=== PATIENT | male | born 1970 | race African-American/Black ===

== ENCOUNTER 2019-04-07 22:57 | Inpatient (IN) | payer MEDICAID ==
--- NOTE | 2019-04-08 00:03 | Emergency Department Report ---
ED Shortness of Breath HPI - General Chief Complaint: Dyspnea/Respdistress Stated Complaint: DETSIN Time Seen by Provider: 04/07/19 23:27 Source: patient, EMS Mode of arrival: Stretcher Limitations: No Limitations - History of Present Illness Initial Comments: Mr. Torres is a 48-year-old male with history of liver cancer presents with 3 months of abdominal swelling and one month of bilateral leg swelling. He also has shortness of breath. He was diagnosed with liver cancer in [place]. He travels between [place] and [place]. He currently is living here with his mother. History of tobacco abuse. No history of alcohol abuse. He has not received any recent medical treatment. Arrived via EMS MD Complaint: shortness of breath -: Gradual, month(s) (3) Severity: moderate Improves With: nothing Worsens With: nothing Known History Of: other (liver cancer) - Related Data Allergies Allergy/AdvReac Type Severity Reaction Status Date / Time No Known Allergies Allergy Unverified 04/07/19 23:31 ED Review of Systems ROS: Stated complaint: DESTIN Other details as noted in HPI Comment: All other systems reviewed and negative Constitutional: denies: fever, malaise Respiratory: shortness of breath. denies: cough Cardiovascular: denies: chest pain ED Past Medical Hx - Past Medical History Previous Medical History?: Yes Hx of Cancer: Yes (liver ca) - Surgical History Past Surgical History?: No - Social History Smoking Status: Current Every Day Smoker Substance Use Type: None Other Social History: Unemployed, currently living with mother ED Physical Exam - General Limitations: No Limitations General appearance: alert, in no apparent distress, other (speaking full sentences, mild work of breathing) - Head Head exam: Present: atraumatic, normocephalic - Eye Eye exam: Present: normal appearance - ENT ENT exam: Present: mucous membranes moist - Neck Neck exam: Present: normal inspection - Respiratory Respiratory exam: Present: normal lung sounds bilaterally. Absent: respiratory distress, wheezes, rales, rhonchi - Cardiovascular Cardiovascular Exam: Present: regular rate, normal rhythm, normal heart sounds. Absent: systolic murmur, diastolic murmur, rubs, gallop - GI/Abdominal GI/Abdominal exam: Present: distended (tense, shiny skin, dull to percussion, ), normal bowel sounds. Absent: tenderness, guarding, rebound - Rectal Rectal exam: Present: deferred - Extremities Exam Extremities exam: Present: other (4+ pitting edema from groin to feet bilaterally) - Back Exam Back exam: Present: normal inspection - Neurological Exam Neurological exam: Present: alert, oriented X3 - Psychiatric Psychiatric exam: Present: normal affect, normal mood - Skin Skin exam: Present: warm, dry, intact, normal color. Absent: rash ED Course Vital Signs 04/07/19 04/07/19 04/07/19 23:20 23:30 23:31 Temperature 98.1 F Pulse Rate 98 H 105 H Respiratory 27 H 24 26 H Rate Blood Pressure 131/85 131/85 Blood Pressure 131/85 [Left] O2 Sat by Pulse 98 98 98 Oximetry 04/08/19 00:00 Temperature Pulse Rate 103 H Respiratory 26 H Rate Blood Pressure 122/85 Blood Pressure [Left] O2 Sat by Pulse 97 Oximetry ED Medical Decision Making - Lab Data Result diagrams: 04/08/19 00:06 04/08/19 00:06 - EKG Data 04/08/19 00:16 EKG obtained 0005 Sinus tachycardia rate 100 beats minute normal axis normal intervals no ST elevation normal T-wave pattern normal EKG with the exception of sinus tachycardia - Radiology Data Radiology results: report reviewed AP portable radiograph no acute process according to radiologist report - Medical Decision Making Mr. Torres has a hx of reported liver cancer without recent medical care who prese nts with abdominal discomfort for 3 months and lower extremity edema for one month. He presents with anasarca, obvious ascites and lower extremity edema. Notable w/u thus far with severe leukocytosis => Possible causes: SBP vs hematologic cancer vs paraneoplastic leukomoid reaction Given broad-spectrum antibiotics in the ED. Admitted to the hospitalist service Critical care attestation.: If time is entered above; I have spent that time in minutes in the direct care of this critically ill patient, excluding procedure time. ED Disposition Clinical Impression: Anasarca, Malignancy, Dyspnea Disposition: OP ADMIT IP TO THIS HOSP Is pt being admited?: Yes Does the pt Need Aspirin: No Condition: Stable
--- NOTE | 2019-04-08 00:24 | XRay Report ---
PROCEDURE: XR CHEST 1V AP TECHNIQUE: Chest radiograph single view. HISTORY: Dyspnea COMPARISONS: None . FINDINGS: Heart: Normal. Mediastinum/Vessels: Normal. Lungs/Pleural space: There is atelectasis in both lower lungs. There is no evidence of effusion or p neumothorax. There is an elevated right hemidiaphragm.. Bony thorax: No acute osseous abnormality. Life support devices: None. IMPRESSION: Atelectasis in both lower lungs. There is an elevated right hemidiaphragm. No effusion o r pneumothorax. This document is electronically signed by Abby Morris DO., Apr 08 2019 12:22:03 AM ET
[2019-04-08 00:30] LABS: Hematocrit 29.6 % (35.5-45.6); Hemoglobin 9.5 gm/dl (11.8-15.2); Mean Corpuscular HGB Conc 32 % (32-34); Mean Corpuscular Volume 98 fl (84-94); Platelet Count 244 K/mm3 (140-440); Red Blood Count 3.03 M/mm3 (3.65-5.03); Red Cell Distribution Width 16.5 % (13.2-15.2)
[2019-04-08 00:50] LABS: Alanine Aminotransferase 57 units/L (7-56); Albumin 3.1 g/dL (3.9-5); BUN/Creatinine Ratio 23; Blood Urea Nitrogen 21 mg/dL (9-20); Calcium 8.9 mg/dL (8.4-10.2); Hemolysis Index 2
--- NOTE | 2019-04-08 02:09 | Cat Scan Report ---
PROCEDURE: CT ANGIO CHEST TECHNIQUE: A CT angiogram was obtained of the chest following the intravenous injection of 100 cc of Omnipaque 350. MIP sagittal, coronal and rotational reconstructions were reviewed. HISTORY: ascites dyspnea COMPARISONS: None FINDINGS: The heart size is normal. There is no evidence of pericardial effusion. There is no evidence of conge stion or pulmonary embolus. The lungs reveal generalized interstitial prominence without focal infilt rate or effusion. In the retrosternal space there is a heterogeneous mass measuring 4.1 x 2.6 x 5.1 c m. Whether this represents enlarged lymph nodes or a neoplasm is uncertain. In the upper abdomen the liver is diffusely enlarged having low attenuation areas and overall heterog eneous enhancement. How much of the findings are related to hepatic steatosis and/or cirrhosis is unc ertain. The spleen is not enlarged. The adrenal glands appear normal. The skeletal structures do not show any acute changes. IMPRESSION: No evidence of pulmonary embolus, aortic dissection, or vascular congestion. Retrosternal mass measuring 4.1 x 2.6 x 5.1 cm. Whether this represents enlarged lymph nodes or neopl asm is uncertain. PET CT imaging is recommended for initial further evaluation. Generalized interstitial prominence in the lungs without focal infiltrate. How much of the findings o n the basis of interstitial edema versus chronic changes is uncertain. Hepatomegaly with heterogeneous attenuation of liver suggesting some combination of hepatic steatosis and/or cirrhosis.. Occult malignancy cannot entirely be ruled out. MRI is recommended for further ev aluation. This document is electronically signed by Josr Juan MD., Apr 08 2019 02:07:39 AM OMAR
[2019-04-08] MEDS: MAXIPIME/NS 2 GM/100 ML 2 GM/100 ML BAG IV SCH ×3 (02:20→17:06)
--- NOTE | 2019-04-08 02:41 | Cat Scan Report ---
PROCEDURE: CT ABDOMEN PELVIS W CON TECHNIQUE: Computerized axial tomography of the abdomen and pelvis was performed after the IV inject ion of iodinated nonionic contrast. HISTORY: ascites COMPARISONS: None . FINDINGS: Liver: The liver is enlarged. There are large areas of hypoattenuation scattered throughout the liver. The radius is fatty infiltra tion primary hepatic tumor are all within the differential.. Spleen: Spleen size is prominent. There are areas of hypoattenuation which may represent multiple dawood ologies including atypical cysts or possibly metastatic change.. Gallbladder and biliary system: Closure identified within the gallbladder lumen. No dilatation of the biliary ductal system. Pancreas: Normal. Adrenals: Normal. Kidneys: Normal. GI tract: The stomach is normal. No obstruction is seen. The colon is normal. The appendix is not vi sualized. . Lymph nodes and mesentery: There are scattered lymph nodes throughout the mesentery.. Vasculature: Normal.. Bladder: Normal. Reproductive organs: Normal. Peritoneum: No free fluid. Musculoskeletal structures: No significant abnormality. Other: None . IMPRESSION: The liver is enlarged with multiple areas of hypoattenuation throughout the liver especi ally the right lobe. Cirrhosis is possible. Primary metastatic change to the liver is also within the differential. The spleen is slightly enlarged, areas of hypoattenuation may represent multiple etiologies including atypical cyst or metastatic change. There is no evidence of intestinal or urinary tract obstruction. . This document is electronically signed by Abby Morris DO., Apr 08 2019 02:39:30 AM ET
[2019-04-08] MEDS ORDERED: ZOFRAN IV PRN (03:35)
[2019-04-08] MEDS ORDERED: IBUPROFEN PO PRN (03:35)
[2019-04-08] MEDS ORDERED: SODIUM CHLORIDE FLUSH SYRINGE 10 ML IV PRN (03:35)
--- NOTE | 2019-04-08 03:55 | History and Physical Report ---
<KAROLYN GASCA - Last Filed: 04/08/19 03:48> History of Present Illness Date of examination: 04/08/19 Date of admission: 04/08/2019 Chief complaint: Shortness of breath and generalized edema History of present illness: Mr. Torres is a 48 y.o. [place] male who is an ongoing smoker recently diagnosed with Liver cancer (Dec 2018) who presents to [facility] ED via EMS with c/o worsening dyspnea, bilateral lowr extremity and abdominal swelling for the past month. Pt relocated to [place] from [place], [place] approximately 3 months ago. Currently he is unemployed and is living with his mother. Pt does not have a PCP and has not received any treatment since being diagnosed with liver cancer at a facility in [place], [place] . Admits to dyspnea at rest, occasional non productive cough. Denies pain, fever, CP, hemoptysis, n/v/, or recent sick expo sure. Past History Past Medical History: cancer (diagnosed with liver cancer 12/2018) Past Surgical History: No surgical history Social history: smoking (ongoing smoker 1ppd ) Family history: no significant family history Medications and Allergies Allergies Allergy/AdvReac Type Severity Reaction Status Date / Time No Known Allergies Allergy Unverified 04/07/19 23:31 Active Meds: Active Medications Docusate Sodium (Colace) 100 mg PO BID LILLIAN Furosemide (Lasix) 40 mg IV 0600,1800 LILLIAN Cefepime HCl (Maxipime/Ns 2 Gm/100 Ml) 2 gm in 100 mls @ 200 mls/hr IV Q8H LILLIAN; Protocol Last Admin: 04/08/19 02:20 Dose: 200 mls/hr Documented by: Vancomycin HCl (Vancomycin/Ns 1 Gm/250 Ml) 1 gm in 250 mls @ 167.007 mls/hr IV ONCE ONE; Protocol Stop: 04/08/19 05:03 Ibuprofen (Motrin) 600 mg PO Q6H PRN PRN Reason: Pain, Mild (1-3) Ondansetron HCl (Zofran) 4 mg IV Q8H PRN PRN Reason: Nausea And Vomiting Sodium Chloride (Sodium Chloride Flush Syringe 10 Ml) 10 ml IV BID LILLIAN Sodium Chloride (Sodium Chloride Flush Syringe 10 Ml) 10 ml IV PRN PRN PRN Reason: LINE FLUSH Review of Systems Constitutional: weight gain, no fever, no chills, no sweats, no poor appetite Ears, nose, mouth and throat: no mouth pain, no dysphagia, no sore throat, no headache Cardiovascular: edema, shortness of breath, dyspnea on exertion, no chest pain, no orthopnea, no high blood pressure Respiratory: cough, shortness of breath, dyspnea on exertion, no cough with sputum, no hemoptysis Gastrointestinal: other (ascites), no abdominal pain, no nausea, no vomiting Genitourinary Male: no hematuria, no discharge, no urinary hesitancy, no incontinence Rectal: no pain, no incontinence, no bleeding Musculoskeletal: no arm numbness/tingling, no shooting leg pain, no leg numbness/tingling, no muscle weakness, no limitation of motion Integumentary: no rash, no pruritis, no redness Neurological: no paralysis, no weakness, no parathesias, no numbness, no ting ling Psychiatric: no anxiety, no suicidal ideation, no depression Endocrine: no polyphagia, no excessive thirst, no polydipsia, no polyuria, no nocturia Hematologic/Lymphatic: no easy bruising, no easy bleeding Allergic/Immunologic: no wheezing Exam - Physical Exam Narrative exam: Physical exam General appearance: Present: No acute distress, alert, and oriented x3, pale looking - EENT Eyes: Present: PERRL, EOM intact ENT: hearing intact, poor dentition - Neck Neck: Present: supple, normal ROM - Respiratory Respiratory effort: Non-labored Respiratory: bi-basilar crackles - Cardiovascular Heart rate: 101 (bpm) Rhythm: regular Heart Sounds: Present: S1 & S2. Absent: rub, click - Extremities Extremities: no ischemia, pulses intact, abnormal (generalized +3 pitting edema) - Peripheral Assessment Peripheral Pulses: within normal limits - Abdominal General gastrointestinal: rounded, firm, , non-tender, normal bowel sounds - Integumentary Integumentary: Present: warm, dry - Musculoskeletal Musculoskeletal: able to move all extremities - Psychiatric Psychiatric: cooperative - Constitutional Vitals: Temp Pulse Resp BP Pulse Ox 98.1 F 101 H 28 H 123/83 97 04/07/19 23:20 04/08/19 00:30 04/08/19 00:30 04/08/19 02:26 04/08/19 02:26 Results - Labs CBC & Chem 7: 04/08/19 00:06 04/08/19 00:06 Labs: Laboratory Last Values WBC 39.1 K/mm3 (4.5-11.0) H 04/08/19 00:06 RBC 3.03 M/mm3 (3.65-5.03) L 04/08/19 00:06 Hgb 9.5 gm/dl (11.8-15.2) L 04/08/19 00:06 Hct 29.6 % (35.5-45.6) L 04/08/19 00:06 MCV 98 fl (84-94) H 04/08/19 00:06 MCH 31 pg (28-32) 04/08/19 00:06 MCHC 32 % (32-34) 04/08/19 00:06 RDW 16.5 % (13.2-15.2) H 04/08/19 00:06 Plt Count 244 K/mm3 (140-440) 04/08/19 00:06 Sodium 138 mmol/L (137-145) 04/08/19 00:06 Potassium 4.0 mmol/L (3.6-5.0) 04/08/19 00:06 Chloride 98.8 mmol/L (98-107) 04/08/19 00:06 Carbon Dioxide 21 mmol/L (22-30) L 04/08/19 00:06 22 mmol/L 04/08/19 00:06 BUN 21 mg/dL (9-20) H 04/08/19 00:06 0.9 mg/dL (0.8-1.5) 04/08/19 00:06 Estimated GFR > 60 ml/min 04/08/19 00:06 23 % 04/08/19 00:06 Glucose 105 mg/dL (75-100) H 04/08/19 00:06 Lactic Acid 4.40 mmol/L (0.7-2.0) H* 04/08/19 02:06 Calcium 8.9 mg/dL (8.4-10.2) 04/08/19 00:06 Magnesium 1.70 mg/dL (1.7-2.3) 04/08/19 00:06 0.60 mg/dL (0.1-1.2) 04/08/19 00:06 AST 98 units/L (5-40) H 04/08/19 00:06 ALT 57 units/L (7-56) H 04/08/19 00:06 940 units/L (35-129) H 04/08/19 00:06 < 0.010 ng/mL (0.00-0.029) 04/08/19 00:06 NT-Pro-B Natriuret Pep 307.1 pg/mL (0-450) 04/08/19 00:06 8.0 g/dL (6.3-8.2) 04/08/19 00:06 3.1 g/dL (3.9-5) L 04/08/19 00:06 0.6 % 04/08/19 00:06 46 units/L (13-60) 04/08/19 00:06 Short CBC 04/08/19 Range/Units 00:06 WBC 39.1 H (4.5-11.0) K/mm3 Hgb 9.5 L (11.8-15.2) gm/dl Hct 29.6 L (35.5-45.6) % Plt Count 244 (140-440) K/mm3 BMP 04/08/19 00:06 Sodium 138 Potassium 4.0 Chloride 98.8 Carbon Dioxide 21 L BUN 21 H Creatinine 0.9 Glucose 105 H Calcium 8.9 Cardiac Enzymes 04/08/19 Range/Units 00:06 Troponin T < 0.010 (0.00-0.029) ng/mL Liver Function 04/08/19 Range/Units 00:06 Total Bilirubin 0.60 (0.1-1.2) mg/dL AST 98 H (5-40) units/L ALT 57 H (7-56) units/L Alkaline Phosphatase 940 H (35-129) units/L Albumin 3.1 L (3.9-5) g/dL - Imaging and Cardiology Chest x-ray: report reviewed ( Atelectasis in both lower lungs. There is an elevated right hemidiaphragm. No effusion), image reviewed CT scan - abdomen: report reviewed, image reviewed (enlarged liver with multiple areas of hypoattenuation throughout. spleen is slightly enlarged, areas of hypoattenuation ) CT scan - chest: report reviewed, image reviewed (No evidence of pulmonary embolus, aortic dissection, or vascular congestion. Retrosternal mass measuring 4.1 x 2.6 x 5.1 cm) Assessment and Plan Assessment and plan: Mr. Torres is a 48 y.o. [place] male who is an ongoing smoker recently diagnosed with Liver cancer (Dec 2018) who presents to [facility] ED via EMS with c/o worsening dyspnea, bilateral lowr extremity and abdominal swelling for the past month. Pt relocated to [place] from [place], [place] approximately 3 months ago. Currently he is unemployed and is living with his mother. Pt does not have a PCP and has not received any treatment since being diagnosed with liver cancer at a facility in [place], [place] . Pt has generalized edema. High WBC at 39.1 likely suggestive of malignancy. Elevation of AST 98 and ALT 57. We will attempt to obtain medical records from hospital in [facility]. Pt will be admitted to Medical floor. Will consult Heme/Onc. Abnormal Chest CTA & CT Abd/Pelvis Leukocytosis- likely secondary to malignancy Fluid Overload Anemia Tobacco dependence/ Abuse Plans: Continue Cefepime 2g Give Vancomycin 1gm x1 dose Blood Cultures pending Diurese with IV Lasix 40mg BID Strict I&O's Monitor hgb; transfuse prn Monitor CBC with diff Heme/Onc consult pending Counseled for cessation Start Nicotine patch DVT PPX on SCD's will hold off on AC for now Advance Directives: No VTE prophylaxis?: Mechanical Plan of care discussed with patient/family: Yes <ABIDA MENA - Last Filed: 04/14/19 00:17> History of Present Illness Date of admission: 04/08/19 03:35 Medications and Allergies Active Meds: Active Medications Docusate Sodium (Colace) 100 mg PO BID LILLIAN Furosemide (Lasix) 40 mg IV 0600,1800 LILLIAN Cefepime HCl (Maxipime/Ns 2 Gm/100 Ml) 2 gm in 100 mls @ 200 mls/hr IV Q8H LILLIAN; Protocol Last Admin: 04/08/19 02:20 Dose: 200 mls/hr Documented by: Ibuprofen (Motrin) 600 mg PO Q6H PRN PRN Reason: Pain, Mild (1-3) Nicotine (Habitrol) 14 mg TD QDAY LILLIAN Ondansetron HCl (Zofran) 4 mg IV Q8H PRN PRN Reason: Nausea And Vomiting Sodium Chloride (Sodium Chloride Flush Syringe 10 Ml) 10 ml IV BID LILLIAN Sodium Chloride (Sodium Chloride Flush Syringe 10 Ml) 10 ml IV PRN PRN PRN Reason: LINE FLUSH Exam - Constitutional Vitals: Temp Pulse Resp BP Pulse Ox 98.7 F 105 H 20 125/79 95 04/08/19 05:30 04/08/19 05:30 04/08/19 05:30 04/08/19 05:30 04/08/19 05:30 Results - Labs CBC & Chem 7: 04/13/19 05:46 04/13/19 05:46 Labs: Laboratory Last Values WBC 39.1 K/mm3 (4.5-11.0) H 04/08/19 00:06 RBC 3.03 M/mm3 (3.65-5.03) L 04/08/19 00:06 Hgb 9.5 gm/dl (11.8-15.2) L 04/08/19 00:06 Hct 29.6 % (35.5-45.6) L 04/08/19 00:06 MCV 98 fl (84-94) H 04/08/19 00:06 MCH 31 pg (28-32) 04/08/19 00:06 MCHC 32 % (32-34) 04/08/19 00:06 RDW 16.5 % (13.2-15.2) H 04/08/19 00:06 Plt Count 244 K/mm3 (140-440) 04/08/19 00:06 Add Manual Diff Complete 04/08/19 00:06 Total Counted 100 04/08/19 00:06 Seg Neuts % (Manual) 71.0 % (40.0-70.0) H 04/08/19 00:06 11.0 % 04/08/19 00:06 9.0 % (13.4-35.0) L 04/08/19 00:06 Reactive Lymphs % (Man) 0 % 04/08/19 00:06 9.0 % (0.0-7.3) H 04/08/19 00:06 0 % (0.0-4.3) 04/08/19 00:06 0 % (0.0-1.8) 04/08/19 00:06 0 % 04/08/19 00:06 0 % 04/08/19 00:06 0 % 04/08/19 00:06 0 % 04/08/19 00:06 Nucleated RBC % Not Reportable 04/08/19 00:06 Seg Neutrophils # Man 27.8 K/mm3 (1.8-7.7) H 04/08/19 00:06 Band Neutrophils # 4.3 K/mm3 04/08/19 00:06 3.5 K/mm3 (1.2-5.4) 04/08/19 00:06 Abs React Lymphs (Man) 0.0 K/mm3 04/08/19 00:06 3.5 K/mm3 (0.0-0.8) H 04/08/19 00:06 0.0 K/mm3 (0.0-0.4) 04/08/19 00:06 0.0 K/mm3 (0.0-0.1) 04/08/19 00:06 0.0 K/mm3 04/08/19 00:06 0.0 K/mm3 04/08/19 00:06 0.0 K/mm3 04/08/19 00:06 Blast Cells # 0.0 K/mm3 04/08/19 00:06 WBC Morphology Not Reportable 04/08/19 00:06 Hypersegmented Neuts Not Reportable 04/08/19 00:06 Hyposegmented Neuts Not Reportable 04/08/19 00:06 Hypogranular Neuts Not Reportable 04/08/19 00:06 Not Reportable 04/08/19 00:06 Not Reportable 04/08/19 00:06 Not Reportable 04/08/19 00:06 Not Reportable 04/08/19 00:06 Not Reportable 04/08/19 00:06 Not Reportable 04/08/19 00:06 Appears normal 04/08/19 00:06 Not Reportable 04/08/19 00:06 Plt Clumps, EDTA Not Reportable 04/08/19 00:06 Not Reportable 04/08/19 00:06 Not Reportable 04/08/19 00:06 Not Reportable 04/08/19 00:06 Plt Morphology Comment Not Reportable 04/08/19 00:06 RBC Morphology Normal 04/08/19 00:06 Dimorphic RBCs Not Reportable 04/08/19 00:06 Not Reportable 04/08/19 00:06 Not Reportable 04/08/19 00:06 Not Reportable 04/08/19 00:06 Not Reportable 04/08/19 00:06 Not Reportable 04/08/19 00:06 Not Reportable 04/08/19 00:06 Not Reportable 04/08/19 00:06 Not Reportable 04/08/19 00:06 Not Reportable 04/08/19 00:06 Not Reportable 04/08/19 00:06 Not Reportable 04/08/19 00:06 Not Reportable 04/08/19 00:06 Not Reportable 04/08/19 00:06 Not Reportable 04/08/19 00:06 Not Reportable 04/08/19 00:06 Not Reportable 04/08/19 00:06 Not Reportable 04/08/19 00:06 Not Reportable 04/08/19 00:06 Not Reportable 04/08/19 00:06 Acanthocytes (Spur) Not Reportable 04/08/19 00:06 Rouleaux Not Reportable 04/08/19 00:06 Not Reportable 04/08/19 00:06 Not Reportable 04/08/19 00:06 Not Reportable 04/08/19 00:06 Not Reportable 04/08/19 00:06 Hem Pathologist Commnt No 04/08/19 00:06 PT 13.4 Sec. (12.2-14.9) 04/08/19 03:51 INR 0.96 (0.87-1.13) 04/08/19 03:51 Sodium 138 mmol/L (137-145) 04/08/19 00:06 Potassium 4.0 mmol/L (3.6-5.0) 04/08/19 00:06 Chloride 98.8 mmol/L (98-107) 04/08/19 00:06 Carbon Dioxide 21 mmol/L (22-30) L 04/08/19 00:06 22 mmol/L 04/08/19 00:06 BUN 21 mg/dL (9-20) H 04/08/19 00:06 0.9 mg/dL (0.8-1.5) 04/08/19 00:06 Estimated GFR > 60 ml/min 04/08/19 00:06 23 % 04/08/19 00:06 Glucose 105 mg/dL (75-100) H 04/08/19 00:06 Lactic Acid 3.60 mmol/L (0.7-2.0) H* 04/08/19 05:58 Calcium 8.9 mg/dL (8.4-10.2) 04/08/19 00:06 Magnesium 1.70 mg/dL (1.7-2.3) 04/08/19 00:06 0.60 mg/dL (0.1-1.2) 04/08/19 00:06 AST 98 units/L (5-40) H 04/08/19 00:06 ALT 57 units/L (7-56) H 04/08/19 00:06 940 units/L (35-129) H 04/08/19 00:06 < 0.010 ng/mL (0.00-0.029) 04/08/19 00:06 NT-Pro-B Natriuret Pep 307.1 pg/mL (0-450) 04/08/19 00:06 8.0 g/dL (6.3-8.2) 04/08/19 00:06 3.1 g/dL (3.9-5) L 04/08/19 00:06 0.6 % 04/08/19 00:06 46 units/L (13-60) 04/08/19 00:06 Assessment and Plan Assessment and plan: 48-year-old man was recently diagnosed with liver cancer and presents at emergency room with complaints of upper abdominal pain. His physical exam is significant for anasarca, abdominal tenderness and leukocytosis without a source. Agree with cefepime, given a dose of vancomycin. Obtain medical records from [place]. Agree with the plan as discussed above except change ibuprofen to morphine, a DVT prophylaxis. I saw and examined the patient, case discussed with nurse practitioner
[2019-04-08] MEDS ORDERED: FLAGYL 500 MG/100 ML 500 MG/100 ML BAG IV SCH (04:00)
[2019-04-08] MEDS ORDERED: VANCOMYCIN/NS 1 GM/250 ML 1 GM/250 ML BAG IV ONE (04:00)
[2019-04-08 04:25] LABS: INR 0.96 (0.87-1.13)
[2019-04-08 06:11] LABS: Band Neutrophils # (Manual) 4.3 K/mm3; Basophils % (Manual) 0 % (0.0-1.8); Eosinophils % (Manual) 0 % (0.0-4.3); RBC Morphology Normal; Total Cells Counted 100
[2019-04-08] MEDS: LASIX IV SCH ×2 (07:36→17:06)
[2019-04-08] MEDS: LOVENOX SUB-Q SCH (09:17)
[2019-04-08] MEDS: HABITROL TD SCH (09:17)
[2019-04-08] MEDS: COLACE PO SCH ×2 (09:17→22:20)
[2019-04-08] MEDS: SODIUM CHLORIDE FLUSH SYRINGE 10 ML IV SCH ×2 (09:18→22:20)
[2019-04-08] MEDS ORDERED: AFLURIA QUAD 2018-2019 SYRINGE IM ONE (12:00)
--- NOTE | 2019-04-08 15:39 | Event Note ---
Date: 04/08/19 patient seen and examined admitted with h/o liver cancer, onc consulted, will follow recommendation
--- NOTE | 2019-04-08 21:53 | Consultation ---
RADIATION ONCOLOGY CONSULTATION NOTE REFERRING DOCTOR: Sadiq Ho MD CHIEF COMPLAINT: " PROFILE: This is a 48-year-old Irish gentleman with a reported history of metastatic liver cancer referred for palliative radiotherapy. CONCLUSION: 1. He has a history of metastatic liver cancer diagnosed in [place], [place]. No reports available at the time of this dictation. 2. History of abdominal swelling, right upper quadrant pain, dyspnea. RECOMMENDATIONS: We will attempt to obtain all medical records including pathology from [place], [place]. We agree he should be a candidate for palliative radiotherapy to the retrosternal mass and possibly liver to reduce pain. We will plan to deliver dose of 30 Gy in 10 fractions. ASSESSMENT: This is a very pleasant 48-year-old Irish gentleman with a history of tobacco abuse, reportedly was diagnosed as having liver cancer in 12/2018. He was diagnosed in [place], [place]. He presented to [facility] Emergency Department with chest pain, worsening dyspnea, bilateral lower extremity edema, and swelling. He has relocated to [place]. A CT scan of the abdomen reveals enlarged liver with multiple areas of hypoattenuation throughout consistent with metastatic disease. The spleen is slightly enlarged. CT scan of the chest reveals no evidence of pulmonary embolus, aortic dissection or vascular congestion. There is a retrosternal mass measuring 5.1 x 4.1 x 2.6 cm. His white blood count was 39,000 suggestive of malignancy. Elevation of AST to 98 and ALT to 57. He now is referred for consideration of palliative radiotherapy. Clinically, the patient states he has sternal pain, abdominal pain. His dyspnea has improved. Denies hemoptysis. PAST MEDICAL HISTORY: History of probable metastatic liver cancer, pathology not available. 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 REVIEW OF SYSTEMS: CONSTITUTIONAL: He has fatigue, poor appetite, weight loss. HEENT: Denies any headache, visual changes, hoarseness. RESPIRATORY: He has dyspnea. Denies hemoptysis. Intermittent chest pain. CARDIOVASCULAR: Denies any palpitations, angina. GASTROINTESTINAL: He has right upper quadrant pain, history of liver cancer. Denies any nausea, vomiting, constipation, diarrhea, or rectal bleeding. GENITOURINARY: Denies any dysuria, hematuria. MEDICATIONS: Furosemide, Maxipime, Motrin, nicotine. ALLERGIES: None known. PHYSICAL EXAMINATION: GENERAL: He is a chronically ill-appearing gentleman, in no acute distress. VITAL SIGNS: Blood pressure 125/79, pulse is 100, respiration 18. He is afebrile, pulse ox 95%, ECOG equals 1. Pain equals 4/10 related to right upper quadrant pain. HEENT: Normocephalic, atraumatic. Eyes were clear. LUNGS: Clear to auscultation. No spinal or CVA tenderness. CARDIOVASCULAR: Faint heart tones, regular rate and rhythm. ABDOMEN: Protuberant. His liver is enlarged 4 cm below the right costophrenic angle. He is tender to palpation over the liver. No other masses appreciated. EXTREMITIES: Bilateral lower extremity edema. Upper extremities are unremarkable. No clubbing or cyanosis. NEUROLOGIC: His motor, sensory, and cerebellar exam are grossly intact. Cranial nerves 2-12 are grossly intact. ASSESSMENT AND PLAN: This is an unfortunate 48-year-old Irish gentleman who has a history reported of liver cancer with probable metastasis to the retro-sternum. He has bulky lesion of the retrosternum region on his CT scan causing pain. We will attempt to obtain all records from [place], [place]. We agree he should be an excellent candidate for palliative radiotherapy to the retrosternal mass. We will plan to deliver dose of 30 Gy in 10 fractions. Risk of radiation including, sore throat, cough, fever, nausea, vomiting, was discussed with the patient. We will begin this therapy as soon as possible. JOB# [id number] VENKATA/OLGA ROSA
--- NOTE | 2019-04-08 23:03 | Event Note ---
Date: 04/08/19 [id number]
--- NOTE | 2019-04-09 02:11 | Consultation ---
REFERRING PHYSICIAN: Dr. Mcrae REASON FOR CONSULTATION: History of hepatocellular cancer. HISTORY OF PRESENT ILLNESS: I saw the patient, a 48 years old Micronesian male. The patient states that in December, he was diagnosed with liver cancer. The patient says he relocated to [place] from [place], [place] a few months ago. He lives with his mother. He states he has not been treated for the liver cancer. The details of the pathology are not available. He came to the hospital because of shortness of breath, cough. No fever, no hemoptysis. During this admission, radiology showed hepatomegaly with multiple lesions and also retrosternal mass, so I have been asked to evaluate the patient. At this time, no headache, no visual disturbances, no ear discharge. He has shortness of breath. No abdominal pain, no vomiting, no diarrhea, no dysuria. PAST MEDICAL HISTORY: As above. PAST SURGICAL HISTORY: None. SOCIAL HISTORY: History of smoking present. FAMILY HISTORY: Noncontributory. ALLERGIES: None. MEDICATIONS: Included Colace, Lasix. PRESENT MEDICATIONS: Includes vancomycin, cefepime, ibuprofen. PHYSICAL EXAMINATION: VITAL SIGNS: Temperature 99, pulse 105, respirations 19, BP 133/88. HEENT: Pallor present. No icterus. NECK: No neck lymph nodes. HEART: S1, S2. LUNGS: Clear to auscultation anteriorly. ABDOMEN: Hepatomegaly present. EXTREMITIES: No calf tenderness, but he has leg edema. LABORATORY DATA: White cell ____, hemoglobin is 9.5, MCV 98, platelet 244. Potassium is 4, creatinine 0.9, calcium 8.9. AST and ALT is slightly abnormal. Alkaline phosphatase is 940. RADIOLOGY: CT chest and abdomen and pelvis were done. Radiology shows a retrosternal heterogeneous mass 4.[address] of the pelvis shows multiple liver lesions. Spleen is prominent. Cirrhosis is a possibility. ASSESSMENT: 2. History of cancer in the liver. It is not clear if it is primary versus metastatic. We will see if we can get the information from [place]. 3. History of shortness of breath. There is retrosternal mass ____. We will look into palliative radiation for this mass. 4. Abnormal liver function tests. 5. History of shortness of breath. 6. Leukocytosis, likely reactive. 7. We will do tumor markers. 8. Mild anemia. PLAN: I will follow the patient during inpatient stay and then in the clinic setting. At this time, the pathology from [place] will help us. We will try to get more information from there. JOB# [id number] ILIA/NTS
[2019-04-09] MEDS: MAXIPIME/NS 2 GM/100 ML 2 GM/100 ML BAG IV SCH ×3 (02:17→18:44)
[2019-04-09] MEDS: LASIX IV SCH ×2 (05:57→18:44)
[2019-04-09 06:55] LABS: Hematocrit 32.3 % (35.5-45.6); Hemoglobin 10.5 gm/dl (11.8-15.2); Mean Corpuscular HGB Conc 33 % (32-34); Mean Corpuscular Volume 97 fl (84-94); Platelet Count 255 K/mm3 (140-440); Red Blood Count 3.33 M/mm3 (3.65-5.03)
[2019-04-09 07:19] LABS: BUN/Creatinine Ratio 27; Blood Urea Nitrogen 24 mg/dL (9-20); Calcium 9.2 mg/dL (8.4-10.2); Hemolysis Index 0
[2019-04-09] MEDS: HABITROL TD SCH (09:40)
[2019-04-09] MEDS: MORPHINE IV PRN (09:41)
[2019-04-09] MEDS: LOVENOX SUB-Q SCH (09:41)
[2019-04-09] MEDS: COLACE PO SCH ×2 (09:44→21:58)
[2019-04-09] MEDS: SODIUM CHLORIDE FLUSH SYRINGE 10 ML IV SCH ×2 (09:44→21:59)
--- NOTE | 2019-04-09 09:58 | Progress Note ---
Assessment and Plan Assessment and plan: --History of liver cancer [December 2018] Oncology following, records from the previous hospital --Leukocytosis; secondary to malignancy Supportive care and hematology oncology following, --Transaminitis; secondary to liver cancer --Generalized edema/secondary to liver failure/diuretics --Moderate malnutrition/hypoalbuminemia albumin 3.1 Due to underlying disease process, nutritional supplements and supportive care --Possible SIRS without organ failure --Lactic acidosis; secondary to underlying disease process Trending down, closely monitor, empiric antibiotics --DVT prophylaxis; Lovenox Monitor closely and adjust management as needed Follow-up hematology oncology recommendations Plan of care is reviewed with the patient and his mother at the bedside Discussed with his nurse History Interval history: Patient seen and examined medical records reviewed Patient complains of generalized weakness Lower extremity swelling Alert awake oriented vital signs reviewed Hospitalist Physical - Constitutional Vitals: Temp Pulse Resp BP Pulse Ox 98.8 F 118 H 20 137/93 96 04/09/19 06:28 04/09/19 06:28 04/09/19 09:41 04/09/19 06:28 04/09/19 06:28 General appearance: Present: no acute distress, well-nourished - EENT Eyes: Present: PERRL, EOM intact - Neck Neck: Present: supple, normal ROM - Respiratory Respiratory effort: normal Respiratory: bilateral: diminished, negative: rales, rhonchi, wheezing - Cardiovascular Rhythm: regular Heart Sounds: Present: S1 & S2 - Extremities Extremities: no ischemia Extremity abnormal: edema - Abdominal General gastrointestinal: soft, non-tender, non-distended, normal bowel sounds - Integumentary Integumentary: Present: clear, warm - Psychiatric Psychiatric: appropriate mood/affect, cooperative - Neurologic Neurologic: CNII-XII intact, moves all extremities Results - Labs CBC & Chem 7: 04/12/19 05:48 04/12/19 05:48 Labs: Laboratory Last Values WBC 34.9 K/mm3 (4.5-11.0) H 04/09/19 06:32 RBC 3.33 M/mm3 (3.65-5.03) L 04/09/19 06:32 Hgb 10.5 gm/dl (11.8-15.2) L 04/09/19 06:32 Hct 32.3 % (35.5-45.6) L 04/09/19 06:32 MCV 97 fl (84-94) H 04/09/19 06:32 MCH 32 pg (28-32) 04/09/19 06:32 MCHC 33 % (32-34) 04/09/19 06:32 RDW 16.0 % (13.2-15.2) H 04/09/19 06:32 Plt Count 255 K/mm3 (140-440) 04/09/19 06:32 Add Manual Diff Complete 04/08/19 00:06 Total Counted 100 04/08/19 00:06 Seg Neuts % (Manual) 71.0 % (40.0-70.0) H 04/08/19 00:06 11.0 % 04/08/19 00:06 9.0 % (13.4-35.0) L 04/08/19 00:06 Reactive Lymphs % (Man) 0 % 04/08/19 00:06 9.0 % (0.0-7.3) H 04/08/19 00:06 0 % (0.0-4.3) 04/08/19 00:06 0 % (0.0-1.8) 04/08/19 00:06 0 % 04/08/19 00:06 0 % 04/08/19 00:06 0 % 04/08/19 00:06 0 % 04/08/19 00:06 Nucleated RBC % Not Reportable 04/08/19 00:06 Seg Neutrophils # Man 27.8 K/mm3 (1.8-7.7) H 04/08/19 00:06 Band Neutrophils # 4.3 K/mm3 04/08/19 00:06 3.5 K/mm3 (1.2-5.4) 04/08/19 00:06 Abs React Lymphs (Man) 0.0 K/mm3 04/08/19 00:06 3.5 K/mm3 (0.0-0.8) H 04/08/19 00:06 0.0 K/mm3 (0.0-0.4) 04/08/19 00:06 0.0 K/mm3 (0.0-0.1) 04/08/19 00:06 0.0 K/mm3 04/08/19 00:06 0.0 K/mm3 04/08/19 00:06 0.0 K/mm3 04/08/19 00:06 Blast Cells # 0.0 K/mm3 04/08/19 00:06 WBC Morphology Not Reportable 04/08/19 00:06 Hypersegmented Neuts Not Reportable 04/08/19 00:06 Hyposegmented Neuts Not Reportable 04/08/19 00:06 Hypogranular Neuts Not Reportable 04/08/19 00:06 Not Reportable 04/08/19 00:06 Not Reportable 04/08/19 00:06 Not Reportable 04/08/19 00:06 Not Reportable 04/08/19 00:06 Not Reportable 04/08/19 00:06 Not Reportable 04/08/19 00:06 Appears normal 04/08/19 00:06 Not Reportable 04/08/19 00:06 Plt Clumps, EDTA Not Reportable 04/08/19 00:06 Not Reportable 04/08/19 00:06 Not Reportable 04/08/19 00:06 Not Reportable 04/08/19 00:06 Plt Morphology Comment Not Reportable 04/08/19 00:06 RBC Morphology Normal 04/08/19 00:06 Dimorphic RBCs Not Reportable 04/08/19 00:06 Not Reportable 04/08/19 00:06 Not Reportable 04/08/19 00:06 Not Reportable 04/08/19 00:06 Not Reportable 04/08/19 00:06 Not Reportable 04/08/19 00:06 Not Reportable 04/08/19 00:06 Not Reportable 04/08/19 00:06 Not Reportable 04/08/19 00:06 Not Reportable 04/08/19 00:06 Not Reportable 04/08/19 00:06 Not Reportable 04/08/19 00:06 Not Reportable 04/08/19 00:06 Not Reportable 04/08/19 00:06 Not Reportable 04/08/19 00:06 Not Reportable 04/08/19 00:06 Not Reportable 04/08/19 00:06 Not Reportable 04/08/19 00:06 Not Reportable 04/08/19 00:06 Not Reportable 04/08/19 00:06 Acanthocytes (Spur) Not Reportable 04/08/19 00:06 Rouleaux Not Reportable 04/08/19 00:06 Not Reportable 04/08/19 00:06 Not Reportable 04/08/19 00:06 Not Reportable 04/08/19 00:06 Not Reportable 04/08/19 00:06 Hem Pathologist Commnt No 04/08/19 00:06 PT 13.4 Sec. (12.2-14.9) 04/08/19 03:51 INR 0.96 (0.87-1.13) 04/08/19 03:51 Sodium 136 mmol/L (137-145) L 04/09/19 06:32 Potassium 4.3 mmol/L (3.6-5.0) 04/09/19 06:32 Chloride 97.9 mmol/L (98-107) L 04/09/19 06:32 Carbon Dioxide 22 mmol/L (22-30) 04/09/19 06:32 20 mmol/L 04/09/19 06:32 BUN 24 mg/dL (9-20) H 04/09/19 06:32 0.9 mg/dL (0.8-1.5) 04/09/19 06:32 Estimated GFR > 60 ml/min 04/09/19 06:32 27 % 04/09/19 06:32 Glucose 83 mg/dL (75-100) 04/09/19 06:32 Lactic Acid 3.20 mmol/L (0.7-2.0) H* 04/08/19 08:20 Calcium 9.2 mg/dL (8.4-10.2) 04/09/19 06:32 Magnesium 1.70 mg/dL (1.7-2.3) 04/08/19 00:06 0.60 mg/dL (0.1-1.2) 04/08/19 00:06 AST 98 units/L (5-40) H 04/08/19 00:06 ALT 57 units/L (7-56) H 04/08/19 00:06 940 units/L (35-129) H 04/08/19 00:06 < 0.010 ng/mL (0.00-0.029) 04/08/19 00:06 NT-Pro-B Natriuret Pep 307.1 pg/mL (0-450) 04/08/19 00:06 8.0 g/dL (6.3-8.2) 04/08/19 00:06 3.1 g/dL (3.9-5) L 04/08/19 00:06 0.6 % 04/08/19 00:06 46 units/L (13-60) 04/08/19 00:06 Active Medications - Current Medications Current Medications: Generic Name Dose Route Start Last Admin Trade Name Freq PRN Reason Stop Dose Admin Docusate Sodium 100 mg 04/08/19 10:00 04/09/19 09:44 Colace PO 100 mg BID LILLIAN Administration Enoxaparin Sodium 40 mg 04/08/19 10:00 04/09/19 09:41 Lovenox SUB-Q 40 mg QDAY LILLIAN Administration Furosemide 40 mg 04/08/19 06:00 04/09/19 05:57 Lasix IV 40 mg 0600,1800 LILLIAN Administration Cefepime HCl 2 gm in 100 mls @ 200 mls/hr 04/08/19 02:00 04/09/19 09:39 Maxipime/Ns 2 Gm/100 Ml IV 200 mls/hr Q8H LILLIAN Administration Protocol Morphine Sulfate 2 mg 04/08/19 06:53 04/09/19 09:41 Morphine IV 2 mg Q4H PRN Administration Pain, Moderate (4-6) Nicotine 14 mg 04/08/19 10:00 04/09/19 09:40 Habitrol TD 14 mg QDAY LILLIAN Administration Ondansetron HCl 4 mg 04/08/19 03:35 Zofran IV Q8H PRN Nausea And Vomiting Sodium Chloride 10 ml 04/08/19 10:00 04/09/19 09:44 Sodium Chloride Flush Syringe 10 Ml IV 10 ml BID LILLIAN Administration Sodium Chloride 10 ml 04/08/19 03:35 Sodium Chloride Flush Syringe 10 Ml IV PRN PRN LINE FLUSH
--- NOTE | 2019-04-09 10:44 | Hem/Onc Progress Note ---
Assessment and Plan 2. History of cancer in the liver. It is not clear if it is primary versus metastatic. We will see if we can get the information from [place]. 3. History of shortness of breath. There is retrosternal mass. We will look into palliative radiation for this mass. 4. Abnormal liver function tests. 5. History of shortness of breath. 6. Leukocytosis, likely reactive. 7. We will do tumor markers. 8. Mild anemia. PLAN: I will follow the patient during inpatient stay and then in the clinic setting. At this time, the pathology from [place] will help us. We will try to get more information from there. 04/09 - pt says he was bx at [facility] at [place]. pt says he was told - he will lvier may be 6 months - Patient Problems (1) Liver cancer Current Visit: Yes Status: Acute Qualifiers: Liver malignancy type: unspecified liver malignancy Qualified Code(s): C22.9 - Malignant neoplasm of liver, not specified as primary or secondary Subjective Date of service: 04/09/19 Principal diagnosis: liver lesions - chest mass Interval history: still has leg swelling Objective - Constitutional Vitals: Last Vital Signs Temp 98.8 F 04/09/19 06:28 Pulse 118 H 04/09/19 06:28 Resp 20 04/09/19 09:41 BP 137/93 04/09/19 06:28 Pulse Ox 96 04/09/19 06:28 Pain Intensity (0-10): denies any pain General appearance: no acute distress Performance status: 3-limited selfcare - EENT Eyes: EOM intact ENT: clear oral mucosa Lymph node exam: negative cervical - Neck Neck: normal ROM - Respiratory Respiratory effort: Positive: normal Respiratory: bilateral: CTA - Cardiovascular Heart Sounds: Present: S1 & S2 Extremities: normal temperature Extremity abnormal: edema - Gastrointestinal General gastrointestinal: Present: soft, non-tender Rectal Exam: deferred - Genitourinary Male genitourinary: Present: deferred - Integumentary Integumentary: warm - Musculoskeletal Musculoskeletal: strength equal bilaterally - Neurologic Neurologic: moves all extremities - Labs Lab Results: Laboratory Results - last 24 hr 04/09/19 04/09/19 06:32 06:32 WBC 34.9 H RBC 3.33 L Hgb 10.5 L Hct 32.3 L MCV 97 H MCH 32 MCHC 33 RDW 16.0 H Plt Count 255 Sodium 136 L Potassium 4.3 Chloride 97.9 L Carbon Dioxide 22 Anion Gap 20 BUN 24 H Creatinine 0.9 Estimated GFR > 60 BUN/Creatinine Ratio 27 Glucose 83 Calcium 9.2 Medications & Allergies - Medications Allergies/Adverse Reactions: Allergies No Known Allergies Allergy (Unverified 04/07/19 23:31) Active Medications: Generic Name Dose Route Start Last Admin Trade Name Freq PRN Reason Stop Dose Admin Docusate Sodium 100 mg 04/08/19 10:00 04/09/19 09:44 Colace PO 100 mg BID LILLIAN Administration Enoxaparin Sodium 40 mg 04/08/19 10:00 04/09/19 09:41 Lovenox SUB-Q 40 mg QDAY LILLIAN Administration Furosemide 40 mg 04/08/19 06:00 04/09/19 05:57 Lasix IV 40 mg 0600,1800 LILLIAN Administration Cefepime HCl 2 gm in 100 mls @ 200 mls/hr 04/08/19 02:00 04/09/19 09:39 Maxipime/Ns 2 Gm/100 Ml IV 200 mls/hr Q8H LILLIAN Administration Protocol Morphine Sulfate 2 mg 04/08/19 06:53 04/09/19 09:41 Morphine IV 2 mg Q4H PRN Administration Pain, Moderate (4-6) Nicotine 14 mg 04/08/19 10:00 04/09/19 09:40 Habitrol TD 14 mg QDAY LILLIAN Administration Ondansetron HCl 4 mg 04/08/19 03:35 Zofran IV Q8H PRN Nausea And Vomiting Sodium Chloride 10 ml 04/08/19 10:00 04/09/19 09:44 Sodium Chloride Flush Syringe 10 Ml IV 10 ml BID LILLIAN Administration Sodium Chloride 10 ml 04/08/19 03:35 Sodium Chloride Flush Syringe 10 Ml IV PRN PRN LINE FLUSH
[2019-04-09 14:40] LABS: Total Cells Counted 100
[2019-04-09 14:41] LABS: Band Neutrophils # (Manual) 0.3 K/mm3; Basophils % (Manual) 0 % (0.0-1.8); Eosinophils % (Manual) 0 % (0.0-4.3); Platelet Estimate Consistent w Auto; RBC Morphology Normal
[2019-04-10] MEDS: MAXIPIME/NS 2 GM/100 ML 2 GM/100 ML BAG IV SCH ×3 (02:32→18:21)
[2019-04-10] MEDS: LASIX IV SCH ×2 (05:28→18:20)
[2019-04-10 07:42] LABS: BUN/Creatinine Ratio 26; Blood Urea Nitrogen 23 mg/dL (9-20); Calcium 8.7 mg/dL (8.4-10.2); Hemolysis Index 0
[2019-04-10 08:12] LABS: Hematocrit 29.7 % (35.5-45.6); Hemoglobin 9.9 gm/dl (11.8-15.2); Mean Corpuscular HGB Conc 33 % (32-34); Mean Corpuscular Volume 97 fl (84-94); Platelet Count 232 K/mm3 (140-440); Red Blood Count 3.08 M/mm3 (3.65-5.03); Red Cell Distribution Width 15.8 % (13.2-15.2)
--- NOTE | 2019-04-10 11:19 | Progress Note ---
Assessment and Plan Assessment and plan: --Cancer liver , recently diagnosed [December 2018] Oncology following, possible palliative radiation --Leukocytosis; secondary to malignancy Supportive care and hematology oncology following, --Transaminitis; secondary to liver cancer --Generalized edema/secondary to liver failure/diuretics --Moderate malnutrition/hypoalbuminemia albumin 3.1 Due to underlying disease process, nutritional supplements and supportive care --Possible SIRS without organ failure --Lactic acidosis; secondary to underlying disease process Trending down, closely monitor, empiric antibiotics --DVT prophylaxis; Lovenox Monitor closely and adjust management as needed Follow-up hematology oncology recommendations Plan of care is reviewed with the patient and his mother at the bedside Discussed with his nurse History Interval history: Patient seen and examined medical records reviewed Patient feels slightly better some abdominal pain Hematology oncology/radiation oncology following the patient Vital signs noted Hospitalist Physical - Constitutional Vitals: Temp Pulse Resp BP Pulse Ox 98.7 F 113 H 20 139/88 96 04/10/19 06:06 04/10/19 06:06 04/10/19 06:06 04/10/19 06:06 04/10/19 06:06 General appearance: Present: no acute distress, well-nourished - EENT Eyes: Present: PERRL, EOM intact - Neck Neck: Present: supple, normal ROM - Respiratory Respiratory effort: normal Respiratory: bilateral: diminished, negative: rales, rhonchi, wheezing - Cardiovascular Rhythm: regular Heart Sounds: Present: S1 & S2 - Extremities Extremities: no ischemia, No edema - Abdominal General gastrointestinal: soft, non-tender, distended, normal bowel sounds, mass - Integumentary Integumentary: Present: clear, warm - Psychiatric Psychiatric: appropriate mood/affect, cooperative - Neurologic Neurologic: CNII-XII intact, moves all extremities Results - Labs CBC & Chem 7: 04/12/19 05:48 04/12/19 05:48 Labs: Laboratory Last Values WBC 36.5 K/mm3 (4.5-11.0) H 04/10/19 06:27 RBC 3.08 M/mm3 (3.65-5.03) L 04/10/19 06:27 Hgb 9.9 gm/dl (11.8-15.2) L 04/10/19 06:27 Hct 29.7 % (35.5-45.6) L 04/10/19 06:27 MCV 97 fl (84-94) H 04/10/19 06:27 MCH 32 pg (28-32) 04/10/19 06:27 MCHC 33 % (32-34) 04/10/19 06:27 RDW 15.8 % (13.2-15.2) H 04/10/19 06:27 Plt Count 232 K/mm3 (140-440) 04/10/19 06:27 Lymph % (Auto) Shoe Parts Molder 04/10/19 06:27 [place] % (Auto) [employer]oe [employer] Molder 04/10/19 06:27 Eos % (Auto) [employer]oe [employer] Molder 04/10/19 06:27 Baso % (Auto) [employer]oe [employer] Molder 04/10/19 06:27 Lymph # [employer] Molder 04/10/19 06:27 [place] # [employer] Molder 04/10/19 06:27 Eos # [employer] Molder 04/10/19 06:27 Baso # [employer] Molder 04/10/19 06:27 Add Manual Diff Complete 04/09/19 06:32 Total Counted 100 04/09/19 06:32 Seg Neutrophils % [employer] Molder 04/10/19 06:27 Seg Neuts % (Manual) 92.0 % (40.0-70.0) H 04/09/19 06:32 1.0 % 04/09/19 06:32 5.0 % (13.4-35.0) L 04/09/19 06:32 Reactive Lymphs % (Man) 0 % 04/09/19 06:32 2.0 % (0.0-7.3) 04/09/19 06:32 0 % (0.0-4.3) 04/09/19 06:32 0 % (0.0-1.8) 04/09/19 06:32 0 % 04/09/19 06:32 0 % 04/09/19 06:32 0 % 04/09/19 06:32 0 % 04/09/19 06:32 Nucleated RBC % Not Reportable 04/09/19 06:32 Seg Neutrophils # [employer]oe [employer] Molder 04/10/19 06:27 Seg Neutrophils # Man 32.1 K/mm3 (1.8-7.7) H 04/09/19 06:32 Band Neutrophils # 0.3 K/mm3 04/09/19 06:32 1.7 K/mm3 (1.2-5.4) 04/09/19 06:32 Abs React Lymphs (Man) 0.0 K/mm3 04/09/19 06:32 0.7 K/mm3 (0.0-0.8) 04/09/19 06:32 0.0 K/mm3 (0.0-0.4) 04/09/19 06:32 0.0 K/mm3 (0.0-0.1) 04/09/19 06:32 0.0 K/mm3 04/09/19 06:32 0.0 K/mm3 04/09/19 06:32 0.0 K/mm3 04/09/19 06:32 Blast Cells # 0.0 K/mm3 04/09/19 06:32 WBC Morphology Not Reportable 04/09/19 06:32 Hypersegmented Neuts Not Reportable 04/09/19 06:32 Hyposegmented Neuts Not Reportable 04/09/19 06:32 Hypogranular Neuts Not Reportable 04/09/19 06:32 Not Reportable 04/09/19 06:32 Not Reportable 04/09/19 06:32 Not Reportable 04/09/19 06:32 Not Reportable 04/09/19 06:32 Not Reportable 04/09/19 06:32 Not Reportable 04/09/19 06:32 Consistent w auto 04/09/19 06:32 Not Reportable 04/09/19 06:32 Plt Clumps, EDTA Not Reportable 04/09/19 06:32 Not Reportable 04/09/19 06:32 Not Reportable 04/09/19 06:32 Not Reportable 04/09/19 06:32 Plt Morphology Comment Not Reportable 04/09/19 06:32 RBC Morphology Normal 04/09/19 06:32 Dimorphic RBCs Not Reportable 04/09/19 06:32 Not Reportable 04/09/19 06:32 Not Reportable 04/09/19 06:32 Not Reportable 04/09/19 06:32 Not Reportable 04/09/19 06:32 Not Reportable 04/09/19 06:32 Not Reportable 04/09/19 06:32 Not Reportable 04/09/19 06:32 Not Reportable 04/09/19 06:32 Not Reportable 04/09/19 06:32 Not Reportable 04/09/19 06:32 Not Reportable 04/09/19 06:32 Not Reportable 04/09/19 06:32 Not Reportable 04/09/19 06:32 Not Reportable 04/09/19 06:32 Not Reportable 04/09/19 06:32 Not Reportable 04/09/19 06:32 Not Reportable 04/09/19 06:32 Not Reportable 04/09/19 06:32 Not Reportable 04/09/19 06:32 Acanthocytes (Spur) Not Reportable 04/09/19 06:32 Rouleaux Not Reportable 04/09/19 06:32 Not Reportable 04/09/19 06:32 Not Reportable 04/09/19 06:32 Not Reportable 04/09/19 06:32 Not Reportable 04/09/19 06:32 Hem Pathologist Commnt Sent to pathology 04/09/19 06:32 PT 13.4 Sec. (12.2-14.9) 04/08/19 03:51 INR 0.96 (0.87-1.13) 04/08/19 03:51 Sodium 136 mmol/L (137-145) L 04/10/19 06:27 Potassium 4.1 mmol/L (3.6-5.0) 04/10/19 06:27 Chloride 97.5 mmol/L (98-107) L 04/10/19 06:27 Carbon Dioxide 22 mmol/L (22-30) 04/10/19 06:27 21 mmol/L 04/10/19 06:27 BUN 23 mg/dL (9-20) H 04/10/19 06:27 0.9 mg/dL (0.8-1.5) 04/10/19 06:27 Estimated GFR > 60 ml/min 04/10/19 06:27 26 % 04/10/19 06:27 Glucose 82 mg/dL (75-100) 04/10/19 06:27 Lactic Acid 3.20 mmol/L (0.7-2.0) H* 04/08/19 08:20 Calcium 8.7 mg/dL (8.4-10.2) 04/10/19 06:27 Magnesium 1.70 mg/dL (1.7-2.3) 04/08/19 00:06 0.60 mg/dL (0.1-1.2) 04/08/19 00:06 AST 98 units/L (5-40) H 04/08/19 00:06 ALT 57 units/L (7-56) H 04/08/19 00:06 940 units/L (35-129) H 04/08/19 00:06 < 0.010 ng/mL (0.00-0.029) 04/08/19 00:06 NT-Pro-B Natriuret Pep 307.1 pg/mL (0-450) 04/08/19 00:06 8.0 g/dL (6.3-8.2) 04/08/19 00:06 3.1 g/dL (3.9-5) L 04/08/19 00:06 0.6 % 04/08/19 00:06 46 units/L (13-60) 04/08/19 00:06 Active Medications - Current Medications Current Medications: Generic Name Dose Route Start Last Admin Trade Name Emeterioq PRN Reason Stop Dose Admin Docusate Sodium 100 mg 04/08/19 10:00 04/09/19 21:58 Colace PO 100 mg BID LILLIAN Administration Enoxaparin Sodium 40 mg 04/08/19 10:00 04/09/19 09:41 Lovenox SUB-Q 40 mg QDAY LILLIAN Administration Furosemide 40 mg 04/08/19 06:00 04/10/19 05:28 Lasix IV 40 mg 0600,1800 LILLIAN Administration Cefepime HCl 2 gm in 100 mls @ 200 mls/hr 04/08/19 02:00 04/10/19 02:32 Maxipime/Ns 2 Gm/100 Ml IV 200 mls/hr Q8H LILLIAN Administration Protocol Morphine Sulfate 2 mg 04/08/19 06:53 04/09/19 09:41 Morphine IV 2 mg Q4H PRN Administration Pain, Moderate (4-6) Nicotine 14 mg 04/08/19 10:00 04/09/19 09:40 Habitrol TD 14 mg QDAY LILLIAN Administration Ondansetron HCl 4 mg 04/08/19 03:35 Zofran IV Q8H PRN Nausea And Vomiting Sodium Chloride 10 ml 04/08/19 10:00 04/09/19 21:59 Sodium Chloride Flush Syringe 10 Ml IV 10 ml BID LILLIAN Administration Sodium Chloride 10 ml 04/08/19 03:35 Sodium Chloride Flush Syringe 10 Ml IV PRN PRN LINE FLUSH
[2019-04-10] MEDS: LOVENOX SUB-Q SCH (11:22)
[2019-04-10] MEDS: HABITROL TD SCH (11:22)
[2019-04-10] MEDS: COLACE PO SCH ×2 (11:22→22:42)
[2019-04-10] MEDS: SODIUM CHLORIDE FLUSH SYRINGE 10 ML IV SCH ×2 (11:35→22:43)
[2019-04-10 12:03] LABS: Band Neutrophils # (Manual) 0.7 K/mm3; Basophils % (Manual) 0 % (0.0-1.8); Eosinophils % (Manual) 0 % (0.0-4.3); Total Cells Counted 100
[2019-04-10 12:04] LABS: Hypochromasia Few; Platelet Estimate Consistent w Auto
[2019-04-10 12:05] LABS: Target Cells Rare
--- NOTE | 2019-04-10 14:52 | Hem/Onc Progress Note ---
Assessment and Plan 2. History of cancer in the liver. It is not clear if it is primary versus metastatic. We will see if we can get the information from [place]. 3. History of shortness of breath. 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 4. Abnormal liver function tests. 5. History of shortness of breath. 6. Leukocytosis, likely reactive. 7. tumor markers. 8. Mild anemia. PLAN: I will follow the patient during inpatient stay and then in the clinic setting. At this time, the pathology from [place] will help us. We will try to get more information from there. 04/10 - pending path and notes from [place] leg edema - pt says better XRT was evaluating for retrosternal LN area radiation - Patient Problems (1) Liver cancer Current Visit: Yes Status: Acute Qualifiers: Liver malignancy type: unspecified liver malignancy Qualified Code(s): C22.9 - Malignant neoplasm of liver, not specified as primary or secondary Subjective Date of service: 04/10/19 Principal diagnosis: liver lesions Interval history: leg edema better Objective - Constitutional Vitals: Last Vital Signs Temp 98.5 F 04/10/19 12:06 Pulse 113 H 04/10/19 12:06 Resp 16 04/10/19 12:06 BP 140/94 04/10/19 12:06 Pulse Ox 97 04/10/19 12:06 Pain Intensity (0-10): denies any pain General appearance: no acute distress Performance status: 3-limited selfcare - EENT Eyes: EOM intact ENT: hearing intact, clear oral mucosa Lymph node exam: negative cervical - Neck Neck: normal ROM - Respiratory Respiratory effort: Positive: normal Respiratory: bilateral: CTA - Cardiovascular Heart Sounds: Present: S1 & S2 Extremity abnormal: edema - Gastrointestinal General gastrointestinal: Present: soft, non-tender, hepatomegaly Rectal Exam: deferred - Genitourinary Male genitourinary: Present: deferred - Integumentary Integumentary: warm - Musculoskeletal Musculoskeletal: strength equal bilaterally - Neurologic Neurologic: moves all extremities - Labs Lab Results: Laboratory Results - last 24 hr 04/10/19 04/10/19 06:27 06:27 WBC 36.5 H RBC 3.08 L Hgb 9.9 L Hct 29.7 L MCV 97 H MCH 32 MCHC 33 RDW 15.8 H Plt Count 232 Lymph % (Auto) Pattern Data Operator [place] % (Auto) Pattern Data Operator Eos % (Auto) Pattern Data Operator Baso % (Auto) Pattern Data Operator Lymph # Pattern Data Operator [place] # Pattern Data Operator Eos # Pattern Data Operator Baso # Pattern Data Operator Add Manual Diff Complete Total Counted 100 Seg Neutrophils % Pattern Data Operator Seg Neuts % (Manual) 89.0 H Band Neutrophils % 2.0 Lymphocytes % (Manual) 3.0 L Reactive Lymphs % (Man) 2.0 Monocytes % (Manual) 4.0 Eosinophils % (Manual) 0 Basophils % (Manual) 0 Metamyelocytes % 0 Myelocytes % 0 Promyelocytes % 0 Blast Cells % 0 Nucleated RBC % Not Reportable Seg Neutrophils # Pattern Data Operator Seg Neutrophils # Man 32.5 H Band Neutrophils # 0.7 Lymphocytes # (Manual) 1.1 L Abs React Lymphs (Man) 0.7 Monocytes # (Manual) 1.5 H Eosinophils # (Manual) 0.0 Basophils # (Manual) 0.0 Metamyelocytes # 0.0 Myelocytes # 0.0 Promyelocytes # 0.0 Blast Cells # 0.0 WBC Morphology Not Reportable Hypersegmented Neuts Not Reportable Hyposegmented Neuts Not Reportable Hypogranular Neuts Not Reportable Smudge Cells Not Reportable Toxic Granulation Not Reportable Toxic Vacuolation Not Reportable Dohle Bodies Not Reportable Pelger-Huet Anomaly Not Reportable Zac Rods Not Reportable Platelet Estimate Consistent w auto Clumped Platelets Not Reportable Plt Clumps, EDTA Not Reportable Large Platelets Not Reportable Giant Platelets Not Reportable Platelet Satelliting Not Reportable Plt Morphology Comment Not Reportable RBC Morphology Not Reportable Dimorphic RBCs Not Reportable Polychromasia Few Hypochromasia Few Poikilocytosis Not Reportable Anisocytosis Not Reportable Microcytosis Not Reportable Macrocytosis Not Reportable Spherocytes Not Reportable Pappenheimer Bodies Not Reportable Sickle Cells Not Reportable Target Cells Rare Tear Drop Cells Not Reportable Ovalocytes Not Reportable Helmet Cells Not Reportable [place] Bodies Not Reportable [place] Rings Not Reportable [place] Cells Not Reportable Bite Cells Not Reportable Crenated Cell Not Reportable Elliptocytes Not Reportable Acanthocytes (Spur) Not Reportable Rouleaux Not Reportable Hemoglobin C Crystals Not Reportable Schistocytes Not Reportable Malaria parasites Not Reportable Michel Bodies Not Reportable Hem Pathologist Commnt No Sodium 136 L Potassium 4.1 Chloride 97.5 L Carbon Dioxide 22 Anion Gap 21 BUN 23 H Creatinine 0.9 Estimated GFR > 60 BUN/Creatinine Ratio 26 Glucose 82 Calcium 8.7 Medications & Allergies - Medications Allergies/Adverse Reactions: Allergies No Known Allergies Allergy (Unverified 04/07/19 23:31) Active Medications: Generic Name Dose Route Start Last Admin Trade Name Freq PRN Reason Stop Dose Admin Docusate Sodium 100 mg 04/08/19 10:00 04/10/19 11:22 Colace PO 100 mg BID LILLIAN Administration Enoxaparin Sodium 40 mg 04/08/19 10:00 04/10/19 11:22 Lovenox SUB-Q 40 mg QDAY LILLIAN Administration Furosemide 40 mg 04/08/19 06:00 04/10/19 05:28 Lasix IV 40 mg 0600,1800 LILLIAN Administration Cefepime HCl 2 gm in 100 mls @ 200 mls/hr 04/08/19 02:00 04/10/19 11:22 Maxipime/Ns 2 Gm/100 Ml IV 200 mls/hr Q8H LILLIAN Administration Protocol Morphine Sulfate 2 mg 04/08/19 06:53 04/09/19 09:41 Morphine IV 2 mg Q4H PRN Administration Pain, Moderate (4-6) Nicotine 14 mg 04/08/19 10:00 04/10/19 11:22 Habitrol TD 14 mg QDAY LILLIAN Administration Ondansetron HCl 4 mg 04/08/19 03:35 Zofran IV Q8H PRN Nausea And Vomiting Sodium Chloride 10 ml 04/08/19 10:00 04/10/19 11:35 Sodium Chloride Flush Syringe 10 Ml IV 10 ml BID LILLIAN Administration Sodium Chloride 10 ml 04/08/19 03:35 Sodium Chloride Flush Syringe 10 Ml IV PRN PRN LINE FLUSH
[2019-04-11] MEDS: MAXIPIME/NS 2 GM/100 ML 2 GM/100 ML BAG IV SCH ×3 (01:48→17:57)
[2019-04-11] MEDS: LASIX IV SCH ×2 (06:33→17:57)
[2019-04-11 06:40] LABS: Hematocrit 29.4 % (35.5-45.6); Hemoglobin 9.7 gm/dl (11.8-15.2); Mean Corpuscular HGB Conc 33 % (32-34); Mean Corpuscular Volume 97 fl (84-94); Platelet Count 225 K/mm3 (140-440); Red Blood Count 3.03 M/mm3 (3.65-5.03); Red Cell Distribution Width 15.9 % (13.2-15.2)
[2019-04-11 06:58] LABS: Alanine Aminotransferase 50 units/L (7-56); Albumin 2.8 g/dL (3.9-5); BUN/Creatinine Ratio 28; Blood Urea Nitrogen 22 mg/dL (9-20); Hemolysis Index 4
[2019-04-11 08:14] LABS: Anisocytosis 1+; Band Neutrophils # (Manual) 0.9 K/mm3; Basophils % (Manual) 0 % (0.0-1.8); Eosinophils % (Manual) 0.5 % (0.0-4.3); Hypochromasia 1+; Macrocytosis 1+; Total Cells Counted 200
[2019-04-11 08:15] LABS: Ovalocytes Few; Platelet Estimate Consistent w Auto
[2019-04-11] MEDS: COLACE PO SCH ×2 (10:03→22:52)
[2019-04-11] MEDS: HABITROL TD SCH (10:04)
[2019-04-11] MEDS: LOVENOX SUB-Q SCH (10:04)
--- NOTE | 2019-04-11 11:55 | Progress Note ---
Assessment and Plan Assessment and plan: --Recently diagnosed liver cancer [December 2018] Oncology following, possible palliative radiation --Leukocytosis; secondary to malignancy Supportive care and hematology oncology following, --Transaminitis; secondary to liver cancer --Generalized edema/secondary to liver failure/diuretics --Severe malnutrition/hypoalbuminemia albumin 2.8 Due to underlying disease process, nutritional supplements and supportive care --Possible SIRS without organ failure --Lactic acidosis; secondary to underlying disease process Trending down, closely monitor, empiric antibiotics --DVT prophylaxis; Lovenox Monitor closely and adjust management as needed Follow-up hematology oncology recommendations Plan of care is reviewed with the patient and his mother at the bedside Discussed with his nurse History Interval history: Patient seen and examined medical records reviewed No new events reported by the nursing Patient complains of some abdominal pain Vital signs reviewed Hospitalist Physical - Constitutional Vitals: Temp Pulse Resp BP Pulse Ox 98.6 F 104 H 18 140/91 97 04/11/19 06:05 04/11/19 06:05 04/11/19 06:05 04/11/19 06:05 04/11/19 06:05 General appearance: Present: no acute distress, well-nourished - EENT Eyes: Present: PERRL, EOM intact - Neck Neck: Present: supple, normal ROM - Respiratory Respiratory effort: normal Respiratory: bilateral: diminished, rhonchi, negative: rales, wheezing - Cardiovascular Rhythm: regular Heart Sounds: Present: S1 & S2 - Extremities Extremities: no ischemia Extremity abnormal: edema - Abdominal General gastrointestinal: soft, tender, distended, normal bowel sounds, mass - Integumentary Integumentary: Present: clear, warm - Psychiatric Psychiatric: appropriate mood/affect, cooperative - Neurologic Neurologic: moves all extremities Results - Labs CBC & Chem 7: 04/12/19 05:48 04/12/19 05:48 Labs: Laboratory Last Values WBC 34.9 K/mm3 (4.5-11.0) H 04/11/19 05:23 RBC 3.03 M/mm3 (3.65-5.03) L 04/11/19 05:23 Hgb 9.7 gm/dl (11.8-15.2) L 04/11/19 05:23 Hct 29.4 % (35.5-45.6) L 04/11/19 05:23 MCV 97 fl (84-94) H 04/11/19 05:23 MCH 32 pg (28-32) 04/11/19 05:23 MCHC 33 % (32-34) 04/11/19 05:23 RDW 15.9 % (13.2-15.2) H 04/11/19 05:23 Plt Count 225 K/mm3 (140-440) 04/11/19 05:23 Lymph % (Auto) [employer]nc Mill Programmer 04/11/19 05:23 [place] % (Auto) [employer] Programmer 04/11/19 05:23 Eos % (Auto) [employer] Programmer 04/11/19 05:23 Baso % (Auto) [employer] Programmer 04/11/19 05:23 Lymph # [employer] Programmer 04/11/19 05:23 [place] # [employer] Programmer 04/11/19 05:23 Eos # [employer] Programmer 04/11/19 05:23 Baso # [employer] Programmer 04/11/19 05:23 Add Manual Diff Complete 04/11/19 05:23 Total Counted 200 04/11/19 05:23 Seg Neutrophils % [employer] Programmer 04/11/19 05:23 Seg Neuts % (Manual) 78.5 % (40.0-70.0) H 04/11/19 05:23 2.5 % 04/11/19 05:23 8.5 % (13.4-35.0) L 04/11/19 05:23 Reactive Lymphs % (Man) 0 % 04/11/19 05:23 9.0 % (0.0-7.3) H 04/11/19 05:23 0.5 % (0.0-4.3) 04/11/19 05:23 0 % (0.0-1.8) 04/11/19 05:23 1.0 % 04/11/19 05:23 0 % 04/11/19 05:23 0 % 04/11/19 05:23 0 % 04/11/19 05:23 Nucleated RBC % Not Reportable 04/11/19 05:23 Seg Neutrophils # [employer] Programmer 04/11/19 05:23 Seg Neutrophils # Man 27.4 K/mm3 (1.8-7.7) H 04/11/19 05:23 Band Neutrophils # 0.9 K/mm3 04/11/19 05:23 3.0 K/mm3 (1.2-5.4) 04/11/19 05:23 Abs React Lymphs (Man) 0.0 K/mm3 04/11/19 05:23 3.1 K/mm3 (0.0-0.8) H 04/11/19 05:23 0.2 K/mm3 (0.0-0.4) 04/11/19 05:23 0.0 K/mm3 (0.0-0.1) 04/11/19 05:23 0.3 K/mm3 04/11/19 05:23 0.0 K/mm3 04/11/19 05:23 0.0 K/mm3 04/11/19 05:23 Blast Cells # 0.0 K/mm3 04/11/19 05:23 WBC Morphology Not Reportable 04/11/19 05:23 WBC Morphology TNR 04/11/19 05:23 Hypersegmented Neuts Not Reportable 04/11/19 05:23 Hyposegmented Neuts Not Reportable 04/11/19 05:23 Hypogranular Neuts Not Reportable 04/11/19 05:23 Not Reportable 04/11/19 05:23 Not Reportable 04/11/19 05:23 Not Reportable 04/11/19 05:23 Not Reportable 04/11/19 05:23 Not Reportable 04/11/19 05:23 Not Reportable 04/11/19 05:23 Consistent w auto 04/11/19 05:23 Not Reportable 04/11/19 05:23 Plt Clumps, EDTA Not Reportable 04/11/19 05:23 Not Reportable 04/11/19 05:23 Not Reportable 04/11/19 05:23 Not Reportable 04/11/19 05:23 Plt Morphology Comment Not Reportable 04/11/19 05:23 RBC Morphology Not Reportable 04/11/19 05:23 Dimorphic RBCs Not Reportable 04/11/19 05:23 Not Reportable 04/11/19 05:23 1+ 04/11/19 05:23 Not Reportable 04/11/19 05:23 1+ 04/11/19 05:23 Not Reportable 04/11/19 05:23 1+ 04/11/19 05:23 Not Reportable 04/11/19 05:23 Not Reportable 04/11/19 05:23 Not Reportable 04/11/19 05:23 Not Reportable 04/11/19 05:23 Not Reportable 04/11/19 05:23 Few 04/11/19 05:23 Not Reportable 04/11/19 05:23 Not Reportable 04/11/19 05:23 Not Reportable 04/11/19 05:23 Not Reportable 04/11/19 05:23 Not Reportable 04/11/19 05:23 Not Reportable 04/11/19 05:23 Not Reportable 04/11/19 05:23 Acanthocytes (Spur) Not Reportable 04/11/19 05:23 Rouleaux Not Reportable 04/11/19 05:23 Not Reportable 04/11/19 05:23 Not Reportable 04/11/19 05:23 Not Reportable 04/11/19 05:23 Not Reportable 04/11/19 05:23 Hem Pathologist Commnt No 04/11/19 05:23 PT 13.4 Sec. (12.2-14.9) 04/08/19 03:51 INR 0.96 (0.87-1.13) 04/08/19 03:51 Sodium 135 mmol/L (137-145) L 04/11/19 05:23 Potassium 3.9 mmol/L (3.6-5.0) 04/11/19 05:23 Chloride 95.0 mmol/L (98-107) L 04/11/19 05:23 Carbon Dioxide 22 mmol/L (22-30) 04/11/19 05:23 22 mmol/L 04/11/19 05:23 BUN 22 mg/dL (9-20) H 04/11/19 05:23 0.8 mg/dL (0.8-1.5) 04/11/19 05:23 Estimated GFR > 60 ml/min 04/11/19 05:23 28 % 04/11/19 05:23 Glucose 78 mg/dL (75-100) 04/11/19 05:23 Lactic Acid 3.20 mmol/L (0.7-2.0) H* 04/08/19 08:20 Calcium 9.0 mg/dL (8.4-10.2) 04/11/19 05:23 Magnesium 1.70 mg/dL (1.7-2.3) 04/08/19 00:06 0.70 mg/dL (0.1-1.2) 04/11/19 05:23 AST 87 units/L (5-40) H 04/11/19 05:23 ALT 50 units/L (7-56) 04/11/19 05:23 952 units/L (35-129) H 04/11/19 05:23 < 0.010 ng/mL (0.00-0.029) 04/08/19 00:06 NT-Pro-B Natriuret Pep 307.1 pg/mL (0-450) 04/08/19 00:06 7.9 g/dL (6.3-8.2) 04/11/19 05:23 2.8 g/dL (3.9-5) L 04/11/19 05:23 0.5 % 04/11/19 05:23 46 units/L (13-60) 04/08/19 00:06 Active Medications - Current Medications Current Medications: Generic Name Dose Route Start Last Admin Trade Name Emeterioq PRN Reason Stop Dose Admin Docusate Sodium 100 mg 04/08/19 10:00 04/11/19 10:03 Colace PO 100 mg BID LILLIAN Administration Enoxaparin Sodium 40 mg 04/08/19 10:00 04/11/19 10:04 Lovenox SUB-Q 40 mg QDAY LILLIAN Administration Furosemide 40 mg 04/08/19 06:00 04/11/19 06:33 Lasix IV 40 mg 0600,1800 LILLIAN Administration Cefepime HCl 2 gm in 100 mls @ 200 mls/hr 04/08/19 02:00 04/11/19 10:02 Maxipime/Ns 2 Gm/100 Ml IV 200 mls/hr Q8H LILLIAN Administration Protocol Morphine Sulfate 2 mg 04/08/19 06:53 04/09/19 09:41 Morphine IV 2 mg Q4H PRN Administration Pain, Moderate (4-6) Nicotine 14 mg 04/08/19 10:00 04/11/19 10:04 Habitrol TD 14 mg QDAY LILLIAN Administration Ondansetron HCl 4 mg 04/08/19 03:35 Zofran IV Q8H PRN Nausea And Vomiting Sodium Chloride 10 ml 04/08/19 10:00 04/10/19 22:43 Sodium Chloride Flush Syringe 10 Ml IV 10 ml BID LILLIAN Administration Sodium Chloride 10 ml 04/08/19 03:35 04/11/19 06:34 Sodium Chloride Flush Syringe 10 Ml IV 10 ml PRN PRN Administration LINE FLUSH
[2019-04-11] MEDS: SODIUM CHLORIDE FLUSH SYRINGE 10 ML IV SCH ×2 (17:57→22:52)
[2019-04-12] MEDS: MAXIPIME/NS 2 GM/100 ML 2 GM/100 ML BAG IV SCH ×3 (03:35→18:33)
[2019-04-12] MEDS: LASIX IV SCH ×2 (06:09→18:35)
[2019-04-12 06:29] LABS: Hematocrit 31.7 % (35.5-45.6); Hemoglobin 10.2 gm/dl (11.8-15.2); Mean Corpuscular HGB Conc 32 % (32-34); Mean Corpuscular Volume 98 fl (84-94); Platelet Count 235 K/mm3 (140-440); Red Blood Count 3.23 M/mm3 (3.65-5.03); Red Cell Distribution Width 16.4 % (13.2-15.2)
[2019-04-12 06:48] LABS: BUN/Creatinine Ratio 28; Blood Urea Nitrogen 22 mg/dL (9-20); Calcium 8.9 mg/dL (8.4-10.2)
[2019-04-12 06:49] LABS: Alanine Aminotransferase 54 units/L (7-56); Albumin 3.2 g/dL (3.9-5); Hemolysis Index 44
--- NOTE | 2019-04-12 07:12 | Hem/Onc Progress Note ---
Assessment and Plan 2. History of cancer in the liver. It is not clear if it is primary versus metastatic. We will see if we can get the information from [place]. 3. History of shortness of breath. 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 4. Abnormal liver function tests. 5. History of shortness of breath. 6. Leukocytosis, likely reactive. 7. tumor markers. 8. Mild anemia. PLAN: I will follow the patient during inpatient stay and then in the clinic setting. 04/12 -leg edema - pt says better XRT was evaluating for retrosternal LN area radiation - Patient Problems (1) Liver cancer Current Visit: Yes Status: Acute Qualifiers: Liver malignancy type: unspecified liver malignancy Qualified Code(s): C22.9 - Malignant neoplasm of liver, not specified as primary or secondary Subjective Date of service: 04/12/19 Principal diagnosis: liver lesions Interval history: notes from [place] - d/w front office attendant staff Objective - Constitutional Vitals: Last Vital Signs Temp 98.6 F 04/12/19 05:34 Pulse 107 H 04/12/19 05:34 Resp 20 04/12/19 05:34 BP 146/91 04/12/19 05:34 Pulse Ox 97 04/12/19 05:34 Pain Intensity (0-10): denies any pain General appearance: no acute distress Performance status: 3-limited selfcare - EENT Eyes: EOM intact ENT: clear oral mucosa Lymph node exam: negative cervical - Neck Neck: normal ROM - Respiratory Respiratory effort: Positive: normal Respiratory: bilateral: CTA - Cardiovascular Heart Sounds: Present: S1 & S2 Extremity abnormal: edema - Gastrointestinal General gastrointestinal: Present: soft, non-tender Rectal Exam: deferred - Genitourinary Male genitourinary: Present: deferred - Integumentary Integumentary: warm - Musculoskeletal Musculoskeletal: strength equal bilaterally - Neurologic Neurologic: moves all extremities - Labs Lab Results: Laboratory Results - last 24 hr 04/11/19 04/12/19 04/12/19 05:23 05:48 05:48 WBC 36.0 H RBC 3.23 L Hgb 10.2 L Hct 31.7 L MCV 98 H MCH 32 MCHC 32 RDW 16.4 H Plt Count 235 Add Manual Diff Complete Total Counted 200 Seg Neuts % (Manual) 78.5 H Band Neutrophils % 2.5 Lymphocytes % (Manual) 8.5 L Reactive Lymphs % (Man) 0 Monocytes % (Manual) 9.0 H Eosinophils % (Manual) 0.5 Basophils % (Manual) 0 Metamyelocytes % 1.0 Myelocytes % 0 Promyelocytes % 0 Blast Cells % 0 Nucleated RBC % Not Reportable Seg Neutrophils # Man 27.4 H Band Neutrophils # 0.9 Lymphocytes # (Manual) 3.0 Abs React Lymphs (Man) 0.0 Monocytes # (Manual) 3.1 H Eosinophils # (Manual) 0.2 Basophils # (Manual) 0.0 Metamyelocytes # 0.3 Myelocytes # 0.0 Promyelocytes # 0.0 Blast Cells # 0.0 WBC Morphology Not Reportable Hypersegmented Neuts Not Reportable Hyposegmented Neuts Not Reportable Hypogranular Neuts Not Reportable Smudge Cells Not Reportable Toxic Granulation Not Reportable Toxic Vacuolation Not Reportable Dohle Bodies Not Reportable Pelger-Huet Anomaly Not Reportable Zac Rods Not Reportable Platelet Estimate Consistent w auto Clumped Platelets Not Reportable Plt Clumps, EDTA Not Reportable Large Platelets Not Reportable Giant Platelets Not Reportable Platelet Satelliting Not Reportable Plt Morphology Comment Not Reportable RBC Morphology Not Reportable Dimorphic RBCs Not Reportable Polychromasia Not Reportable Hypochromasia 1+ Poikilocytosis Not Reportable Anisocytosis 1+ Microcytosis Not Reportable Macrocytosis 1+ Spherocytes Not Reportable Pappenheimer Bodies Not Reportable Sickle Cells Not Reportable Target Cells Not Reportable Tear Drop Cells Not Reportable Ovalocytes Few Helmet Cells Not Reportable [place] Bodies Not Reportable [place] Rings Not Reportable Soila Cells Not Reportable Bite Cells Not Reportable Crenated Cell Not Reportable Elliptocytes Not Reportable Acanthocytes (Spur) Not Reportable Rouleaux Not Reportable Hemoglobin C Crystals Not Reportable Schistocytes Not Reportable Malaria parasites Not Reportable Michel Bodies Not Reportable Hem Pathologist Commnt No Sodium 137 Potassium 4.8 D Chloride 97.7 L Carbon Dioxide 23 Anion Gap 21 BUN 22 H Creatinine 0.8 Estimated GFR > 60 BUN/Creatinine Ratio 28 Glucose 83 Calcium 8.9 Total Bilirubin 0.60 AST 103 H ALT 54 Alkaline Phosphatase 948 H Total Protein 8.5 H Albumin 3.2 L Albumin/Globulin Ratio 0.6 Medications & Allergies - Medications Allergies/Adverse Reactions: Allergies No Known Allergies Allergy (Unverified 04/07/19 23:31) Active Medications: Generic Name Dose Route Start Last Admin Trade Name Freq PRN Reason Stop Dose Admin Docusate Sodium 100 mg 04/08/19 10:00 04/11/19 22:52 Colace PO 100 mg BID LILLIAN Administration Enoxaparin Sodium 40 mg 04/08/19 10:00 04/11/19 10:04 Lovenox SUB-Q 40 mg QDAY LILLIAN Administration Furosemide 40 mg 04/08/19 06:00 04/12/19 06:09 Lasix IV 40 mg 0600,1800 LILLIAN Administration Cefepime HCl 2 gm in 100 mls @ 200 mls/hr 04/08/19 02:00 04/12/19 03:35 Maxipime/Ns 2 Gm/100 Ml IV 200 mls/hr Q8H LILLIAN Administration Protocol Morphine Sulfate 2 mg 04/08/19 06:53 04/09/19 09:41 Morphine IV 2 mg Q4H PRN Administration Pain, Moderate (4-6) Nicotine 14 mg 04/08/19 10:00 04/11/19 10:04 Habitrol TD 14 mg QDAY LILLIAN Administration Ondansetron HCl 4 mg 04/08/19 03:35 Zofran IV Q8H PRN Nausea And Vomiting Sodium Chloride 10 ml 04/08/19 10:00 04/11/19 22:52 Sodium Chloride Flush Syringe 10 Ml IV 10 ml BID LILLIAN Administration Sodium Chloride 10 ml 04/08/19 03:35 04/11/19 06:34 Sodium Chloride Flush Syringe 10 Ml IV 10 ml PRN PRN Administration LINE FLUSH
--- NOTE | 2019-04-12 08:15 | Progress Note ---
Assessment and Plan Assessment and plan: 48 patient male patient with newly diagnosed with pneumonia diagnosed hepatocellular carcinoma December 2018 in [place] With the retrosternal metastases, evaluation by oncology, radiation oncology, planning palliative radiation. Current medical records Reviewed by oncology, as requested IR for biopsy of the liver mass. --Liver cancer [December 2018] with mets to retrosternum Oncology, radiation oncology following, possible palliative radiation Possible liver mass biopsy by IR[requested by oncology] --Leukocytosis; secondary to malignancy Supportive care and hematology oncology following, --Transaminitis; secondary to liver cancer --Generalized edema/secondary to liver failure/diuretics --Severe malnutrition/hypoalbuminemia albumin 2.8 Due to underlying disease process, nutritional supplements and supportive care --Possible SIRS without organ failure --Lactic acidosis; secondary to underlying disease process Trending down, closely monitor, empiric antibiotics --DVT prophylaxis; Lovenox Monitor closely and adjust management as needed Plan of care is reviewed with the patient and his mother at the bedside Also discussed with oncologist and the nurse Disposition; palliative radiation per radiation oncology/liver biopsy Follow oncology recommendations History Interval history: Patient seen and examined and medical records reviewed Patient feels slightly better radiation oncology planning palliative radiation No new complaints Vital signs noted, Hospitalist Physical - Constitutional Vitals: Temp Pulse Resp BP Pulse Ox 98.6 F 107 H 20 146/91 97 04/12/19 05:34 04/12/19 05:34 04/12/19 05:34 04/12/19 05:34 04/12/19 05:34 General appearance: Present: no acute distress, well-nourished - EENT Eyes: Present: PERRL, EOM intact - Neck Neck: Present: supple, normal ROM - Respiratory Respiratory effort: normal Respiratory: bilateral: diminished, negative: rales, rhonchi, wheezing - Cardiovascular Rhythm: regular Heart Sounds: Present: S1 & S2 - Extremities Extremities: no ischemia Extremity abnormal: edema - Abdominal General gastrointestinal: soft, distended, normal bowel sounds, mass - Integumentary Integumentary: Present: clear, warm - Psychiatric Psychiatric: appropriate mood/affect, cooperative - Neurologic Neurologic: CNII-XII intact, moves all extremities Results - Labs CBC & Chem 7: 04/12/19 05:48 04/12/19 05:48 Labs: Laboratory Last Values WBC 36.0 K/mm3 (4.5-11.0) H 04/12/19 05:48 RBC 3.23 M/mm3 (3.65-5.03) L 04/12/19 05:48 Hgb 10.2 gm/dl (11.8-15.2) L 04/12/19 05:48 Hct 31.7 % (35.5-45.6) L 04/12/19 05:48 MCV 98 fl (84-94) H 04/12/19 05:48 MCH 32 pg (28-32) 04/12/19 05:48 MCHC 32 % (32-34) 04/12/19 05:48 RDW 16.4 % (13.2-15.2) H 04/12/19 05:48 Plt Count 235 K/mm3 (140-440) 04/12/19 05:48 Lymph % (Auto) Court Recorder 04/11/19 05:23 [place] % (Auto) Court Recorder 04/11/19 05:23 Eos % (Auto) Court Recorder 04/11/19 05:23 Baso % (Auto) Court Recorder 04/11/19 05:23 Lymph # [address] Recorder 04/11/19 05:23 [place] # Court Recorder 04/11/19 05:23 Eos # Court Recorder 04/11/19 05:23 Baso # [address] Recorder 04/11/19 05:23 Add Manual Diff Complete 04/11/19 05:23 Total Counted 200 04/11/19 05:23 Seg Neutrophils % Court Recorder 04/11/19 05:23 Seg Neuts % (Manual) 78.5 % (40.0-70.0) H 04/11/19 05:23 2.5 % 04/11/19 05:23 8.5 % (13.4-35.0) L 04/11/19 05:23 Reactive Lymphs % (Man) 0 % 04/11/19 05:23 9.0 % (0.0-7.3) H 04/11/19 05:23 0.5 % (0.0-4.3) 04/11/19 05:23 0 % (0.0-1.8) 04/11/19 05:23 1.0 % 04/11/19 05:23 0 % 04/11/19 05:23 0 % 04/11/19 05:23 0 % 04/11/19 05:23 Nucleated RBC % Not Reportable 04/11/19 05:23 Seg Neutrophils # Court Recorder 04/11/19 05:23 Seg Neutrophils # Man 27.4 K/mm3 (1.8-7.7) H 04/11/19 05:23 Band Neutrophils # 0.9 K/mm3 04/11/19 05:23 3.0 K/mm3 (1.2-5.4) 04/11/19 05:23 Abs React Lymphs (Man) 0.0 K/mm3 04/11/19 05:23 3.1 K/mm3 (0.0-0.8) H 04/11/19 05:23 0.2 K/mm3 (0.0-0.4) 04/11/19 05:23 0.0 K/mm3 (0.0-0.1) 04/11/19 05:23 0.3 K/mm3 04/11/19 05:23 0.0 K/mm3 04/11/19 05:23 0.0 K/mm3 04/11/19 05:23 Blast Cells # 0.0 K/mm3 04/11/19 05:23 WBC Morphology Not Reportable 04/11/19 05:23 WBC Morphology TNR 04/11/19 05:23 Hypersegmented Neuts Not Reportable 04/11/19 05:23 Hyposegmented Neuts Not Reportable 04/11/19 05:23 Hypogranular Neuts Not Reportable 04/11/19 05:23 Not Reportable 04/11/19 05:23 Not Reportable 04/11/19 05:23 Not Reportable 04/11/19 05:23 Not Reportable 04/11/19 05:23 Not Reportable 04/11/19 05:23 Not Reportable 04/11/19 05:23 Consistent w auto 04/11/19 05:23 Not Reportable 04/11/19 05:23 Plt Clumps, EDTA Not Reportable 04/11/19 05:23 Not Reportable 04/11/19 05:23 Not Reportable 04/11/19 05:23 Not Reportable 04/11/19 05:23 Plt Morphology Comment Not Reportable 04/11/19 05:23 RBC Morphology Not Reportable 04/11/19 05:23 Dimorphic RBCs Not Reportable 04/11/19 05:23 Not Reportable 04/11/19 05:23 1+ 04/11/19 05:23 Not Reportable 04/11/19 05:23 1+ 04/11/19 05:23 Not Reportable 04/11/19 05:23 1+ 04/11/19 05:23 Not Reportable 04/11/19 05:23 Not Reportable 04/11/19 05:23 Not Reportable 04/11/19 05:23 Not Reportable 04/11/19 05:23 Not Reportable 04/11/19 05:23 Few 04/11/19 05:23 Not Reportable 04/11/19 05:23 Not Reportable 04/11/19 05:23 Not Reportable 04/11/19 05:23 Not Reportable 04/11/19 05:23 Not Reportable 04/11/19 05:23 Not Reportable 04/11/19 05:23 Not Reportable 04/11/19 05:23 Acanthocytes (Spur) Not Reportable 04/11/19 05:23 Rouleaux Not Reportable 04/11/19 05:23 Not Reportable 04/11/19 05:23 Not Reportable 04/11/19 05:23 Not Reportable 04/11/19 05:23 Not Reportable 04/11/19 05:23 Hem Pathologist Commnt No 04/11/19 05:23 PT 13.4 Sec. (12.2-14.9) 04/08/19 03:51 INR 0.96 (0.87-1.13) 04/08/19 03:51 Sodium 137 mmol/L (137-145) 04/12/19 05:48 Potassium 4.8 mmol/L (3.6-5.0) D 04/12/19 05:48 Chloride 97.7 mmol/L (98-107) L 04/12/19 05:48 Carbon Dioxide 23 mmol/L (22-30) 04/12/19 05:48 21 mmol/L 04/12/19 05:48 BUN 22 mg/dL (9-20) H 04/12/19 05:48 0.8 mg/dL (0.8-1.5) 04/12/19 05:48 Estimated GFR > 60 ml/min 04/12/19 05:48 28 % 04/12/19 05:48 Glucose 83 mg/dL (75-100) 04/12/19 05:48 Lactic Acid 3.20 mmol/L (0.7-2.0) H* 04/08/19 08:20 Calcium 8.9 mg/dL (8.4-10.2) 04/12/19 05:48 Magnesium 1.70 mg/dL (1.7-2.3) 04/08/19 00:06 0.60 mg/dL (0.1-1.2) 04/12/19 05:48 AST 103 units/L (5-40) H 04/12/19 05:48 ALT 54 units/L (7-56) 04/12/19 05:48 948 units/L (35-129) H 04/12/19 05:48 < 0.010 ng/mL (0.00-0.029) 04/08/19 00:06 NT-Pro-B Natriuret Pep 307.1 pg/mL (0-450) 04/08/19 00:06 8.5 g/dL (6.3-8.2) H 04/12/19 05:48 3.2 g/dL (3.9-5) L 04/12/19 05:48 0.6 % 04/12/19 05:48 46 units/L (13-60) 04/08/19 00:06 Active Medications - Current Medications Current Medications: Generic Name Dose Route Start Last Admin Trade Name Freq PRN Reason Stop Dose Admin Docusate Sodium 100 mg 04/08/19 10:00 04/11/19 22:52 Colace PO 100 mg BID LILLIAN Administration Enoxaparin Sodium 40 mg 04/08/19 10:00 04/11/19 10:04 Lovenox SUB-Q 40 mg QDAY LILLIAN Administration Furosemide 40 mg 04/08/19 06:00 04/12/19 06:09 Lasix IV 40 mg 0600,1800 LILLIAN Administration Cefepime HCl 2 gm in 100 mls @ 200 mls/hr 04/08/19 02:00 04/12/19 03:35 Maxipime/Ns 2 Gm/100 Ml IV 200 mls/hr Q8H LILLIAN Administration Protocol Morphine Sulfate 2 mg 04/08/19 06:53 04/09/19 09:41 Morphine IV 2 mg Q4H PRN Administration Pain, Moderate (4-6) Nicotine 14 mg 04/08/19 10:00 04/11/19 10:04 Habitrol TD 14 mg QDAY LILLIAN Administration Ondansetron HCl 4 mg 04/08/19 03:35 Zofran IV Q8H PRN Nausea And Vomiting Sodium Chloride 10 ml 04/08/19 10:00 04/11/19 22:52 Sodium Chloride Flush Syringe 10 Ml IV 10 ml BID LILLIAN Administration Sodium Chloride 10 ml 04/08/19 03:35 04/11/19 06:34 Sodium Chloride Flush Syringe 10 Ml IV 10 ml PRN PRN Administration LINE FLUSH
--- NOTE | 2019-04-12 08:55 | Event Note ---
Date: 04/12/19 Reviewed imaging. There are extremely large liver masses and a chest lymphadenopathy. This is suspicious for HCC. Recommend MRI and obtaining old records. Consider complete lab workup including tumor markers (AFP). HCC can usually be diagnosed by MRI with lab findings. Biopsying HCC can result in bleeding and seeding which is why it is avoided unless necessary. If HCC, not within transplant criteria. If not characteristic of HCC, then biopsy can be performed.
--- NOTE | 2019-04-12 09:36 | Vascular Lab Report ---
PROCEDURE: VL VENOUS DUPLEX LE BILAT TECHNIQUE: Grayscale, color flow and spectral waveform images were obtained of bilateral lower extre mities. HISTORY: LE swelling evaluate fir DVT COMPARISON: None FINDINGS: There is no deep venous thrombosis seen in the left or right lower extremity. Flow is demonstrated by color flow and spectral waveform imaging. There is appropriate wall compression and augmentation. There is also no superficial venous thrombus seen. There are benign-appearing groin lymph nodes bilaterally. The largest is on the left measuring 2.4 x 1.1 cm. IMPRESSION: There is no evidence for DVT in either right or left lower extremity. This document is electronically signed by Kira Hernandez MD., Apr 12 2019 09:34:31 AM ET
[2019-04-12] MEDS: COLACE PO SCH ×2 (09:46→21:51)
[2019-04-12] MEDS: LOVENOX SUB-Q SCH (09:46)
[2019-04-12] MEDS: HABITROL TD SCH ×2 (09:46→09:52)
[2019-04-12] MEDS: SODIUM CHLORIDE FLUSH SYRINGE 10 ML IV SCH ×2 (09:47→21:52)
[2019-04-12 09:53] LABS: Basophils % (Manual) 0 % (0.0-1.8); Eosinophils % (Manual) 0 % (0.0-4.3); Total Cells Counted 100
[2019-04-12 09:54] LABS: Anisocytosis 1+; Macrocytosis 1+; Platelet Estimate Consistent w Auto
[2019-04-13] MEDS: MAXIPIME/NS 2 GM/100 ML 2 GM/100 ML BAG IV SCH ×3 (01:09→17:25)
[2019-04-13] MEDS: LASIX IV SCH ×2 (05:46→17:30)
[2019-04-13 06:32] LABS: Hematocrit 30.5 % (35.5-45.6); Hemoglobin 9.9 gm/dl (11.8-15.2); Mean Corpuscular HGB Conc 32 % (32-34); Mean Corpuscular Volume 98 fl (84-94); Platelet Count 226 K/mm3 (140-440); Red Blood Count 3.11 M/mm3 (3.65-5.03); Red Cell Distribution Width 16.3 % (13.2-15.2)
[2019-04-13 06:51] LABS: Alanine Aminotransferase 56 units/L (7-56); Albumin 3.1 g/dL (3.9-5); BUN/Creatinine Ratio 30; Bilirubin,Direct 0.3 mg/dL (0-0.2); Blood Urea Nitrogen 24 mg/dL (9-20); Calcium 8.6 mg/dL (8.4-10.2); Hemolysis Index 2
--- NOTE | 2019-04-13 07:43 | Hem/Onc Progress Note ---
Assessment and Plan 2. History of cancer in the liver. It is not clear if it is primary versus metastatic. 3. History of shortness of breath. 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 4. Abnormal liver function tests. 5. History of shortness of breath. 6. Leukocytosis, likely reactive. 7. tumor markers. 8. Mild anemia. PLAN: I will follow the patient during inpatient stay and then in the clinic setting. 04/13 -leg edema - better XRT was evaluating for retrosternal LN area radiation d/w dr cortez liver bx ordered based on [place] notes - no bx ent had seen for possible svc syndrome based on clinical findings - palliation was suggested - Patient Problems (1) Liver cancer Current Visit: Yes Status: Acute Qualifiers: Liver malignancy type: unspecified liver malignancy Qualified Code(s): C22.9 - Malignant neoplasm of liver, not specified as primary or secondary Subjective Date of service: 04/13/19 Principal diagnosis: liver lesions Interval history: leg swelling better Objective - Constitutional Vitals: Last Vital Signs Temp 99.0 F 04/13/19 05:08 Pulse 115 H 04/13/19 05:08 Resp 20 04/13/19 05:08 BP 120/77 04/13/19 05:08 Pulse Ox 96 04/13/19 05:08 Pain Intensity (0-10): denies any pain General appearance: no acute distress Performance status: 3-limited selfcare - EENT Eyes: EOM intact ENT: clear oral mucosa Lymph node exam: negative cervical - Neck Neck: supple, normal ROM - Respiratory Respiratory effort: Positive: normal Respiratory: bilateral: diminished - Cardiovascular Heart Sounds: Present: S1 & S2 Extremity abnormal: edema - Gastrointestinal General gastrointestinal: Present: soft, hepatomegaly Rectal Exam: deferred - Genitourinary Male genitourinary: Present: deferred - Integumentary Integumentary: warm - Musculoskeletal Musculoskeletal: strength equal bilaterally - Neurologic Neurologic: moves all extremities - Labs Lab Results: Laboratory Results - last 24 hr 04/09/19 04/12/19 04/13/19 06:32 05:48 05:46 WBC RBC Hgb Hct MCV MCH MCHC RDW Plt Count Add Manual Diff Complete Total Counted 100 Seg Neuts % (Manual) 93.0 H Band Neutrophils % 0 Lymphocytes % (Manual) 4.0 L Reactive Lymphs % (Man) 0 Monocytes % (Manual) 3.0 Eosinophils % (Manual) 0 Basophils % (Manual) 0 Metamyelocytes % 0 Myelocytes % 0 Promyelocytes % 0 Blast Cells % 0 Nucleated RBC % Not Reportable Seg Neutrophils # Man 33.5 H Band Neutrophils # 0.0 Lymphocytes # (Manual) 1.4 Abs React Lymphs (Man) 0.0 Monocytes # (Manual) 1.1 H Eosinophils # (Manual) 0.0 Basophils # (Manual) 0.0 Metamyelocytes # 0.0 Myelocytes # 0.0 Promyelocytes # 0.0 Blast Cells # 0.0 WBC Morphology Not Reportable Hypersegmented Neuts Not Reportable Hyposegmented Neuts Not Reportable Hypogranular Neuts Not Reportable Smudge Cells Not Reportable Toxic Granulation Not Reportable Toxic Vacuolation Not Reportable Dohle Bodies Not Reportable Pelger-Huet Anomaly Not Reportable Zac Rods Not Reportable Platelet Estimate Consistent w auto Clumped Platelets Not Reportable Plt Clumps, EDTA Not Reportable Large Platelets Not Reportable Giant Platelets Not Reportable Platelet Satelliting Not Reportable Plt Morphology Comment Not Reportable RBC Morphology Not Reportable Dimorphic RBCs Not Reportable Polychromasia Not Reportable Hypochromasia Not Reportable Poikilocytosis Not Reportable Anisocytosis 1+ Microcytosis Not Reportable Macrocytosis 1+ Spherocytes Not Reportable Pappenheimer Bodies Not Reportable Sickle Cells Not Reportable Target Cells Not Reportable Tear Drop Cells Not Reportable Ovalocytes Not Reportable Helmet Cells Not Reportable [place] Bodies Not Reportable [place] Rings Not Reportable [place]ila Cells Not Reportable Bite Cells Not Reportable Crenated Cell Not Reportable Elliptocytes Not Reportable Acanthocytes (Spur) Not Reportable Rouleaux Not Reportable Hemoglobin C Crystals Not Reportable Schistocytes Not Reportable Malaria parasites Not Reportable Michel Bodies Not Reportable Hem Pathologist Commnt No Sodium 135 L Potassium 4.1 Chloride 97.6 L Carbon Dioxide 21 L Anion Gap 21 BUN 24 H Creatinine 0.8 Estimated GFR > 60 BUN/Creatinine Ratio 30 Glucose 101 H Calcium 8.6 Total Bilirubin 0.60 Direct Bilirubin 0.3 H Indirect Bilirubin 0.3 AST 104 H ALT 56 Alkaline Phosphatase 941 H Total Protein 8.3 H Albumin 3.1 L Albumin/Globulin Ratio 0.6 CA 19-9 Antigen 23 04/13/19 05:46 WBC 37.6 H RBC 3.11 L Hgb 9.9 L Hct 30.5 L MCV 98 H MCH 32 MCHC 32 RDW 16.3 H Plt Count 226 Add Manual Diff Total Counted Seg Neuts % (Manual) Band Neutrophils % Lymphocytes % (Manual) Reactive Lymphs % (Man) Monocytes % (Manual) Eosinophils % (Manual) Basophils % (Manual) Metamyelocytes % Myelocytes % Promyelocytes % Blast Cells % Nucleated RBC % Seg Neutrophils # Man Band Neutrophils # Lymphocytes # (Manual) Abs React Lymphs (Man) Monocytes # (Manual) Eosinophils # (Manual) Basophils # (Manual) Metamyelocytes # Myelocytes # Promyelocytes # Blast Cells # WBC Morphology Hypersegmented Neuts Hyposegmented Neuts Hypogranular Neuts Smudge Cells Toxic Granulation Toxic Vacuolation Dohle Bodies Pelger-Huet Anomaly Zac Rods Platelet Estimate Clumped Platelets Plt Clumps, EDTA Large Platelets Giant Platelets Platelet Satelliting Plt Morphology Comment RBC Morphology Dimorphic RBCs Polychromasia Hypochromasia Poikilocytosis Anisocytosis Microcytosis Macrocytosis Spherocytes Pappenheimer Bodies Sickle Cells Target Cells Tear Drop Cells Ovalocytes Helmet Cells [place] Bodies [place] Rings [place] Cells Bite Cells Crenated Cell Elliptocytes Acanthocytes (Spur) Rouleaux Hemoglobin C Crystals Schistocytes Malaria parasites Michel Bodies Hem Pathologist Commnt Sodium Potassium Chloride Carbon Dioxide Anion Gap BUN Creatinine Estimated GFR BUN/Creatinine Ratio Glucose Calcium Total Bilirubin Direct Bilirubin Indirect Bilirubin AST ALT Alkaline Phosphatase Total Protein Albumin Albumin/Globulin Ratio CA 19-9 Antigen Medications & Allergies - Medications Allergies/Adverse Reactions: Allergies No Known Allergies Allergy (Unverified 04/07/19 23:31) Active Medications: Generic Name Dose Route Start Last Admin Trade Name Freq PRN Reason Stop Dose Admin Docusate Sodium 100 mg 04/08/19 10:00 04/12/19 21:51 Colace PO 100 mg BID LILLIAN Administration Enoxaparin Sodium 40 mg 04/08/19 10:00 04/12/19 09:46 Lovenox SUB-Q 40 mg QDAY LILLIAN Administration Furosemide 40 mg 04/08/19 06:00 04/13/19 05:46 Lasix IV 40 mg 0600,1800 LILLIAN Administration Cefepime HCl 2 gm in 100 mls @ 200 mls/hr 04/08/19 02:00 04/13/19 01:09 Maxipime/Ns 2 Gm/100 Ml IV 200 mls/hr Q8H LILLIAN Administration Protocol Morphine Sulfate 2 mg 04/08/19 06:53 04/09/19 09:41 Morphine IV 2 mg Q4H PRN Administration Pain, Moderate (4-6) Nicotine 14 mg 04/08/19 10:00 04/12/19 09:52 Habitrol TD Not Given QDAY LILLIAN Ondansetron HCl 4 mg 04/08/19 03:35 Zofran IV Q8H PRN Nausea And Vomiting Sodium Chloride 10 ml 04/08/19 10:00 04/12/19 21:52 Sodium Chloride Flush Syringe 10 Ml IV 10 ml BID LILLIAN Administration Sodium Chloride 10 ml 04/08/19 03:35 04/11/19 06:34 Sodium Chloride Flush Syringe 10 Ml IV 10 ml PRN PRN Administration LINE FLUSH
[2019-04-13 08:52] LABS: Basophils % (Manual) 0 % (0.0-1.8); Eosinophils % (Manual) 0 % (0.0-4.3); Total Cells Counted 100
[2019-04-13 08:56] LABS: Anisocytosis Few; Macrocytosis Few; Platelet Estimate Consistent w Auto
[2019-04-13] MEDS: HABITROL TD SCH (10:45)
[2019-04-13] MEDS: LOVENOX SUB-Q SCH (10:45)
[2019-04-13] MEDS: COLACE PO SCH ×2 (10:46→21:27)
[2019-04-13] MEDS: SODIUM CHLORIDE FLUSH SYRINGE 10 ML IV SCH ×2 (10:47→21:27)
--- NOTE | 2019-04-13 11:31 | Progress Note ---
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 past medical record reviewed by oncology,requested IR for biopsy of the liver mass. --Liver cancer [December 2018] with mets to retrosternum Oncology, radiation oncology following, possible palliative radiation Possible liver mass biopsy by IR[requested by oncology] --Leukocytosis; secondary to malignancy Supportive care and hematology oncology following, --Transaminitis; secondary to liver cancer --Generalized edema/secondary to liver failure/diuretics --Severe malnutrition/hypoalbuminemia albumin 2.8 Due to underlying disease process, nutritional supplements and supportive care --Possible SIRS without organ failure --Lactic acidosis; secondary to underlying disease process Trending down, closely monitor, empiric antibiotics --DVT prophylaxis; Lovenox Monitor closely and adjust management as needed Plan of care is reviewed with the patient and his mother at the bedside Also discussed with oncologist and the nurse Disposition; palliative radiation per radiation oncology/liver biopsy Follow oncology recommendations History Interval history: Patient seen and examined, medical records reviewed c/o some mild abdominal and back pain Hospitalist Physical - Constitutional Vitals: Temp Pulse Resp BP Pulse Ox 99.0 F 115 H 20 120/77 96 04/13/19 05:08 04/13/19 08:37 04/13/19 08:37 04/13/19 05:08 04/13/19 08:37 General appearance: Present: no acute distress, well-nourished - EENT Eyes: Present: PERRL, EOM intact - Neck Neck: Present: supple, normal ROM - Respiratory Respiratory: bilateral: diminished, negative: rales, rhonchi, wheezing - Cardiovascular Rhythm: regular Heart Sounds: Present: S1 & S2 - Extremities Extremities: no ischemia Extremity abnormal: edema - Abdominal General gastrointestinal: soft, distended, normal bowel sounds - Integumentary Integumentary: Present: clear, warm - Psychiatric Psychiatric: appropriate mood/affect, cooperative - Neurologic Neurologic: CNII-XII intact, moves all extremities Results - Labs CBC & Chem 7: 04/13/19 05:46 04/13/19 05:46 Labs: Laboratory Last Values WBC 37.6 K/mm3 (4.5-11.0) H 04/13/19 05:46 RBC 3.11 M/mm3 (3.65-5.03) L 04/13/19 05:46 Hgb 9.9 gm/dl (11.8-15.2) L 04/13/19 05:46 Hct 30.5 % (35.5-45.6) L 04/13/19 05:46 MCV 98 fl (84-94) H 04/13/19 05:46 MCH 32 pg (28-32) 04/13/19 05:46 MCHC 32 % (32-34) 04/13/19 05:46 RDW 16.3 % (13.2-15.2) H 04/13/19 05:46 Plt Count 226 K/mm3 (140-440) 04/13/19 05:46 Lymph % (Auto) [employer] 04/11/19 05:23 Roberts % (Auto) [employer] 04/11/19 05:23 Eos % (Auto) [employer] 04/11/19 05:23 Baso % (Auto) [employer] 04/11/19 05:23 Lymph # [employer] 04/11/19 05:23 Roberts # [employer] 04/11/19 05:23 Eos # [employer] 04/11/19 05:23 Baso # [employer] 04/11/19 05:23 Add Manual Diff Complete 04/13/19 05:46 Total Counted 100 04/13/19 05:46 Seg Neutrophils % [employer] 04/11/19 05:23 Seg Neuts % (Manual) 92.0 % (40.0-70.0) H 04/13/19 05:46 0 % 04/13/19 05:46 4.0 % (13.4-35.0) L 04/13/19 05:46 Reactive Lymphs % (Man) 0 % 04/13/19 05:46 4.0 % (0.0-7.3) 04/13/19 05:46 0 % (0.0-4.3) 04/13/19 05:46 0 % (0.0-1.8) 04/13/19 05:46 0 % 04/13/19 05:46 0 % 04/13/19 05:46 0 % 04/13/19 05:46 0 % 04/13/19 05:46 Nucleated RBC % Not Reportable 04/13/19 05:46 Seg Neutrophils # [employer] 04/11/19 05:23 Seg Neutrophils # Man 34.6 K/mm3 (1.8-7.7) H 04/13/19 05:46 Band Neutrophils # 0.0 K/mm3 04/13/19 05:46 1.5 K/mm3 (1.2-5.4) 04/13/19 05:46 Abs React Lymphs (Man) 0.0 K/mm3 04/13/19 05:46 1.5 K/mm3 (0.0-0.8) H 04/13/19 05:46 0.0 K/mm3 (0.0-0.4) 04/13/19 05:46 0.0 K/mm3 (0.0-0.1) 04/13/19 05:46 0.0 K/mm3 04/13/19 05:46 0.0 K/mm3 04/13/19 05:46 0.0 K/mm3 04/13/19 05:46 Blast Cells # 0.0 K/mm3 04/13/19 05:46 WBC Morphology Not Reportable 04/13/19 05:46 Hypersegmented Neuts Not Reportable 04/13/19 05:46 Hyposegmented Neuts Not Reportable 04/13/19 05:46 Hypogranular Neuts Not Reportable 04/13/19 05:46 Not Reportable 04/13/19 05:46 Not Reportable 04/13/19 05:46 Not Reportable 04/13/19 05:46 Not Reportable 04/13/19 05:46 Not Reportable 04/13/19 05:46 Not Reportable 04/13/19 05:46 Consistent w auto 04/13/19 05:46 Not Reportable 04/13/19 05:46 Plt Clumps, EDTA Not Reportable 04/13/19 05:46 Not Reportable 04/13/19 05:46 Not Reportable 04/13/19 05:46 Not Reportable 04/13/19 05:46 Plt Morphology Comment Not Reportable 04/13/19 05:46 RBC Morphology Not Reportable 04/13/19 05:46 Dimorphic RBCs Not Reportable 04/13/19 05:46 Not Reportable 04/13/19 05:46 Not Reportable 04/13/19 05:46 Not Reportable 04/13/19 05:46 Few 04/13/19 05:46 Not Reportable 04/13/19 05:46 Few 04/13/19 05:46 Not Reportable 04/13/19 05:46 Not Reportable 04/13/19 05:46 Not Reportable 04/13/19 05:46 Not Reportable 04/13/19 05:46 Not Reportable 04/13/19 05:46 Not Reportable 04/13/19 05:46 Not Reportable 04/13/19 05:46 Not Reportable 04/13/19 05:46 Not Reportable 04/13/19 05:46 Not Reportable 04/13/19 05:46 Not Reportable 04/13/19 05:46 Not Reportable 04/13/19 05:46 Not Reportable 04/13/19 05:46 Acanthocytes (Spur) Not Reportable 04/13/19 05:46 Rouleaux Not Reportable 04/13/19 05:46 Not Reportable 04/13/19 05:46 Not Reportable 04/13/19 05:46 Not Reportable 04/13/19 05:46 Not Reportable 04/13/19 05:46 Hem Pathologist Commnt No 04/13/19 05:46 PT 13.4 Sec. (12.2-14.9) 04/08/19 03:51 INR 0.96 (0.87-1.13) 04/08/19 03:51 Sodium 135 mmol/L (137-145) L 04/13/19 05:46 Potassium 4.1 mmol/L (3.6-5.0) 04/13/19 05:46 Chloride 97.6 mmol/L (98-107) L 04/13/19 05:46 Carbon Dioxide 21 mmol/L (22-30) L 04/13/19 05:46 21 mmol/L 04/13/19 05:46 BUN 24 mg/dL (9-20) H 04/13/19 05:46 0.8 mg/dL (0.8-1.5) 04/13/19 05:46 Estimated GFR > 60 ml/min 04/13/19 05:46 30 % 04/13/19 05:46 Glucose 101 mg/dL (75-100) H 04/13/19 05:46 Lactic Acid 3.20 mmol/L (0.7-2.0) H* 04/08/19 08:20 Calcium 8.6 mg/dL (8.4-10.2) 04/13/19 05:46 Magnesium 1.70 mg/dL (1.7-2.3) 04/08/19 00:06 0.60 mg/dL (0.1-1.2) 04/13/19 05:46 0.3 mg/dL (0-0.2) H 04/13/19 05:46 0.3 mg/dL 04/13/19 05:46 AST 104 units/L (5-40) H 04/13/19 05:46 ALT 56 units/L (7-56) 04/13/19 05:46 941 units/L (35-129) H 04/13/19 05:46 < 0.010 ng/mL (0.00-0.029) 04/08/19 00:06 NT-Pro-B Natriuret Pep 307.1 pg/mL (0-450) 04/08/19 00:06 8.3 g/dL (6.3-8.2) H 04/13/19 05:46 3.1 g/dL (3.9-5) L 04/13/19 05:46 0.6 % 04/13/19 05:46 46 units/L (13-60) 04/08/19 00:06 23 U/mL (<34) 04/09/19 06:32 Active Medications - Current Medications Current Medications: Generic Name Dose Route Start Last Admin Trade Name Freq PRN Reason Stop Dose Admin Docusate Sodium 100 mg 04/08/19 10:00 04/13/19 10:46 Colace PO 100 mg BID LILLIAN Administration Enoxaparin Sodium 40 mg 04/08/19 10:00 04/13/19 10:45 Lovenox SUB-Q 40 mg QDAY LILLIAN Administration Furosemide 40 mg 04/08/19 06:00 04/13/19 05:46 Lasix IV 40 mg 0600,1800 LILLIAN Administration Cefepime HCl 2 gm in 100 mls @ 200 mls/hr 04/08/19 02:00 04/13/19 10:41 Maxipime/Ns 2 Gm/100 Ml IV 200 mls/hr Q8H LILLIAN Administration Protocol Morphine Sulfate 2 mg 04/08/19 06:53 04/09/19 09:41 Morphine IV 2 mg Q4H PRN Administration Pain, Moderate (4-6) Nicotine 14 mg 04/08/19 10:00 04/13/19 10:45 Habitrol TD Not Given QDAY LILLIAN Ondansetron HCl 4 mg 04/08/19 03:35 Zofran IV Q8H PRN Nausea And Vomiting Sodium Chloride 10 ml 04/08/19 10:00 04/13/19 10:47 Sodium Chloride Flush Syringe 10 Ml IV 10 ml BID LILLIAN Administration Sodium Chloride 10 ml 04/08/19 03:35 04/11/19 06:34 Sodium Chloride Flush Syringe 10 Ml IV 10 ml PRN PRN Administration LINE FLUSH
[2019-04-14] MEDS: MAXIPIME/NS 2 GM/100 ML 2 GM/100 ML BAG IV SCH ×3 (01:01→18:28)
[2019-04-14] MEDS: LASIX IV SCH ×2 (06:03→18:28)
--- NOTE | 2019-04-14 07:37 | Hem/Onc Progress Note ---
Assessment and Plan 2. History of cancer in the liver. It is not clear if it is primary versus metastatic. 3. History of shortness of breath. 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 4. Abnormal liver function tests. 5. History of shortness of breath. 6. Leukocytosis, likely reactive. 7. tumor markers. 8. Mild anemia. PLAN: I will follow the patient during inpatient stay and then in the clinic setting. 04/14 -leg edema - better XRT was evaluating for retrosternal LN area radiation d/w dr cortez liver bx ordered - pending tumor markers based on [place] - no bx ent had seen for possible svc syndrome d/w dr moseley - MRI liver and reevaluate dilated veins - ? SVc syndrome - XRT chest by dr Cortez CA 19-9 is 23 CEA and AFP pending - Patient Problems (1) Liver cancer Current Visit: Yes Status: Acute Qualifiers: Liver malignancy type: unspecified liver malignancy Qualified Code(s): C22.9 - Malignant neoplasm of liver, not specified as primary or secondary Subjective Date of service: 04/14/19 Principal diagnosis: liver lesion Interval history: leg edema better Objective - Constitutional Vitals: Last Vital Signs Temp 98.3 F 04/14/19 05:14 Pulse 118 H 04/14/19 05:14 Resp 24 04/14/19 05:14 BP 132/91 04/14/19 05:14 Pulse Ox 97 04/14/19 05:14 Pain Intensity (0-10): denies any pain General appearance: no acute distress, other (dilated veins in chest) Performance status: 3-limited selfcare - EENT Eyes: EOM intact ENT: hearing intact, clear oral mucosa Lymph node exam: negative cervical - Neck Neck: normal ROM - Respiratory Respiratory effort: Positive: normal Respiratory: bilateral: diminished - Cardiovascular Heart Sounds: Present: S1 & S2 Extremity abnormal: edema - Gastrointestinal General gastrointestinal: Present: soft, hepatomegaly Rectal Exam: deferred - Genitourinary Male genitourinary: Present: deferred - Integumentary Integumentary: warm - Musculoskeletal Musculoskeletal: generalized weakness - Neurologic Neurologic: moves all extremities - Labs Lab Results: Laboratory Results - last 24 hr 04/09/19 04/13/19 06:32 05:46 Add Manual Diff Complete Total Counted 100 Seg Neuts % (Manual) 92.0 H Band Neutrophils % 0 Lymphocytes % (Manual) 4.0 L Reactive Lymphs % (Man) 0 Monocytes % (Manual) 4.0 Eosinophils % (Manual) 0 Basophils % (Manual) 0 Metamyelocytes % 0 Myelocytes % 0 Promyelocytes % 0 Blast Cells % 0 Nucleated RBC % Not Reportable Seg Neutrophils # Man 34.6 H Band Neutrophils # 0.0 Lymphocytes # (Manual) 1.5 Abs React Lymphs (Man) 0.0 Monocytes # (Manual) 1.5 H Eosinophils # (Manual) 0.0 Basophils # (Manual) 0.0 Metamyelocytes # 0.0 Myelocytes # 0.0 Promyelocytes # 0.0 Blast Cells # 0.0 WBC Morphology Not Reportable Hypersegmented Neuts Not Reportable Hyposegmented Neuts Not Reportable Hypogranular Neuts Not Reportable Smudge Cells Not Reportable Toxic Granulation Not Reportable Toxic Vacuolation Not Reportable Dohle Bodies Not Reportable Pelger-Huet Anomaly Not Reportable Zac Rods Not Reportable Platelet Estimate Consistent w auto Clumped Platelets Not Reportable Plt Clumps, EDTA Not Reportable Large Platelets Not Reportable Giant Platelets Not Reportable Platelet Satelliting Not Reportable Plt Morphology Comment Not Reportable RBC Morphology Not Reportable Dimorphic RBCs Not Reportable Polychromasia Not Reportable Hypochromasia Not Reportable Poikilocytosis Not Reportable Anisocytosis Few Microcytosis Not Reportable Macrocytosis Few Spherocytes Not Reportable Pappenheimer Bodies Not Reportable Sickle Cells Not Reportable Target Cells Not Reportable Tear Drop Cells Not Reportable Ovalocytes Not Reportable Helmet Cells Not Reportable [place] Bodies Not Reportable [place] Rings Not Reportable [place]ila Cells Not Reportable Bite Cells Not Reportable Crenated Cell Not Reportable Elliptocytes Not Reportable Acanthocytes (Spur) Not Reportable Rouleaux Not Reportable Hemoglobin C Crystals Not Reportable Schistocytes Not Reportable Malaria parasites Not Reportable Michel Bodies Not Reportable Hem Pathologist Commnt Sent to pathology No Medications & Allergies - Medications Allergies/Adverse Reactions: Allergies No Known Allergies Allergy (Unverified 04/07/19 23:31) Active Medications: Generic Name Dose Route Start Last Admin Trade Name Freq PRN Reason Stop Dose Admin Docusate Sodium 100 mg 04/08/19 10:00 04/13/19 21:27 Colace PO 100 mg BID LILLIAN Administration Enoxaparin Sodium 40 mg 04/08/19 10:00 04/13/19 10:45 Lovenox SUB-Q 40 mg QDAY LILLIAN Administration Furosemide 40 mg 04/08/19 06:00 04/14/19 06:03 Lasix IV 40 mg 0600,1800 LILLIAN Administration Cefepime HCl 2 gm in 100 mls @ 200 mls/hr 04/08/19 02:00 04/14/19 01:01 Maxipime/Ns 2 Gm/100 Ml IV 200 mls/hr Q8H LILLIAN Administration Protocol Morphine Sulfate 2 mg 04/08/19 06:53 04/09/19 09:41 Morphine IV 2 mg Q4H PRN Administration Pain, Moderate (4-6) Nicotine 14 mg 04/08/19 10:00 04/13/19 10:45 Habitrol TD Not Given QDAY LILLIAN Ondansetron HCl 4 mg 04/08/19 03:35 Zofran IV Q8H PRN Nausea And Vomiting Sodium Chloride 10 ml 04/08/19 10:00 04/13/19 21:27 Sodium Chloride Flush Syringe 10 Ml IV 10 ml BID LILLIAN Administration Sodium Chloride 10 ml 04/08/19 03:35 04/11/19 06:34 Sodium Chloride Flush Syringe 10 Ml IV 10 ml PRN PRN Administration LINE FLUSH
[2019-04-14] MEDS: MORPHINE IV PRN (10:35)
[2019-04-14] MEDS: SODIUM CHLORIDE FLUSH SYRINGE 10 ML IV SCH ×2 (10:38→22:19)
[2019-04-14] MEDS: LOVENOX SUB-Q SCH (10:54)
[2019-04-14] MEDS: HABITROL TD SCH (10:55)
[2019-04-14] MEDS: COLACE PO SCH ×2 (10:55→22:18)
--- NOTE | 2019-04-14 11:35 | Progress Note ---
Assessment and Plan The patient will need an MRI of the abdomen liver protocol to discern the etiology of his large hepatic mass. Additionally, would recommend that the patient undergoes a cardiac workup with echocardiogram to determine the degree of compression on his right atrium from this large mass. Subjective Date of service: 04/14/19 Principal diagnosis: liver lesion Interval history: Patient with large hepatic mass causing compression of the right atrium. The patient does have bulging veins across his chest. Evaluation of his SVC on CT of the chest demonstrates the SVC to be patent. No extrinsic compression identified. Additionally, the patient will need an MRI of the abdomen Objective - Constitutional Vitals: Vital Signs - 12hr 04/14/19 04/14/19 05:14 10:35 Temperature 98.3 F Pulse Rate 118 H Respiratory 24 20 Rate Blood Pressure 132/91 O2 Sat by Pulse 97 Oximetry General appearance: Present: no acute distress - EENT Eyes: EOM intact ENT: hearing intact - Neck Neck: supple, normal ROM - Respiratory Respiratory effort: normal - Breasts Breasts: deferred - Gastrointestinal General gastrointestinal: Present: deferred Rectal Exam: deferred - Genitourinary Male genitourinary: deferred - Psychiatric Psychiatric: cooperative - Labs CBC & Chem 7: 04/13/19 05:46 04/13/19 05:46 Medications & Allergies - Medications Allergies/Adverse Reactions: Allergies No Known Allergies Allergy (Unverified 04/07/19 23:31) Active Medications: Generic Name Dose Route Start Last Admin Trade Name Freq PRN Reason Stop Dose Admin Docusate Sodium 100 mg 04/08/19 10:00 04/14/19 10:55 Colace PO 100 mg BID LILLIAN Administration Enoxaparin Sodium 40 mg 04/08/19 10:00 04/14/19 10:54 Lovenox SUB-Q 40 mg QDAY LILLIAN Administration Furosemide 40 mg 04/08/19 06:00 04/14/19 06:03 Lasix IV 40 mg 0600,1800 LILLIAN Administration Cefepime HCl 2 gm in 100 mls @ 200 mls/hr 04/08/19 02:00 04/14/19 10:55 Maxipime/Ns 2 Gm/100 Ml IV 200 mls/hr Q8H LILLIAN Administration Protocol Morphine Sulfate 2 mg 04/08/19 06:53 04/14/19 10:35 Morphine IV 2 mg Q4H PRN Administration Pain, Moderate (4-6) Nicotine 14 mg 04/08/19 10:00 04/14/19 10:55 Habitrol TD Not Given QDAY LILLIAN Ondansetron HCl 4 mg 04/08/19 03:35 Zofran IV Q8H PRN Nausea And Vomiting Sodium Chloride 10 ml 04/08/19 10:00 04/14/19 10:38 Sodium Chloride Flush Syringe 10 Ml IV 10 ml BID LILLIAN Administration Sodium Chloride 10 ml 04/08/19 03:35 04/11/19 06:34 Sodium Chloride Flush Syringe 10 Ml IV 10 ml PRN PRN Administration LINE FLUSH
--- NOTE | 2019-04-14 20:06 | Progress Note ---
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 Current medical records Reviewed by oncology, as requested IR for biopsy of the liver mass. Cardiac w/u ordered Echo ordered MR Abd /Liver ordered --Liver cancer [December 2018] with mets to retrosternum Oncology, radiation oncology following, possible palliative radiation Possible liver mass biopsy by IR[requested by oncology] --Leukocytosis; secondary to malignancy Supportive care and hematology oncology following, --Transaminitis; secondary to liver cancer --Generalized edema/secondary to liver failure/diuretics --Severe malnutrition/hypoalbuminemia albumin 2.8 Due to underlying disease process, nutritional supplements and supportive care --Possible SIRS without organ failure --Lactic acidosis; secondary to underlying disease process Trending down, closely monitor, empiric antibiotics --DVT prophylaxis; Lovenox Monitor closely and adjust management as needed Plan of care is reviewed with the patient and his mother at the bedside Also discussed with oncologist and the nurse Disposition; palliative radiation per radiation oncology/liver biopsy Follow oncology recommendations Subjective Date of service: 04/14/19 Principal diagnosis: liver lesion Interval history: Resting comfortably Some back pain about 2/10 Objective - Constitutional Vitals: Vital Signs - 12hr 04/14/19 04/14/19 10:35 11:38 Temperature 99.1 F Pulse Rate 100 H Respiratory 20 16 Rate Blood Pressure 124/84 O2 Sat by Pulse 96 Oximetry General appearance: Present: no acute distress, well-nourished - EENT Eyes: PERRL, EOM intact ENT: hearing intact, clear oral mucosa Ears: bilateral: normal - Neck Neck: supple, normal ROM - Respiratory Respiratory effort: normal Respiratory: bilateral: CTA - Breasts Breasts: normal - Cardiovascular Heart rate: 70 Rhythm: regular Heart Sounds: Present: S1 & S2. Absent: gallop, rub Extremities: no ischemia, pulses intact, No edema, normal color, Full ROM - Gastrointestinal General gastrointestinal: Present: soft, non-tender, non-distended, normal bowel sounds, hepatomegaly - Genitourinary Male genitourinary: normal - Integumentary Integumentary: clear, warm, dry - Musculoskeletal Musculoskeletal: 1, strength equal bilaterally - Neurologic Neurologic: moves all extremities - Psychiatric Psychiatric: memory intact, appropriate mood/affect, intact judgment & insight - Labs CBC & Chem 7: 04/13/19 05:46 04/13/19 05:46
[2019-04-15] MEDS: MAXIPIME/NS 2 GM/100 ML 2 GM/100 ML BAG IV SCH ×2 (02:16→11:18)
[2019-04-15] MEDS: LASIX IV SCH (05:40)
--- NOTE | 2019-04-15 07:37 | Hem/Onc Progress Note ---
Assessment and Plan 2. History of cancer in the liver. It is not clear if it is primary versus metastatic. 3. History of shortness of breath. 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 4. Abnormal liver function tests. 5. History of shortness of breath. 6. Leukocytosis, likely reactive. 7. tumor markers. 8. Mild anemia. PLAN: I will follow the patient during inpatient stay and then in the clinic setting. leg edema - better based on [place] notes - no bx ent had seen for possible svc syndrome on 04/14 - I had d/w dr moseley - plan was for MRI liver and reevaluate however pt says cannot do MRI dilated veins - ? SVc syndrome - XRT chest by dr Bergeron [place] 19-9 is 23 CEA 10 and AFP 1 xrt start today - as per pt - Patient Problems (1) Liver cancer Current Visit: Yes Status: Acute Qualifiers: Liver malignancy type: unspecified liver malignancy Qualified Code(s): C22.9 - Malignant neoplasm of liver, not specified as primary or secondary Subjective Date of service: 04/15/19 Principal diagnosis: liver and chest mass Interval history: cannot do MRI pt says will start xrt Objective - Constitutional Vitals: Last Vital Signs Temp 99.1 F 04/15/19 05:16 Pulse 119 H 04/15/19 05:16 Resp 20 04/15/19 05:16 BP 144/93 04/15/19 05:16 Pulse Ox 96 04/15/19 05:16 Pain Intensity (0-10): denies any pain General appearance: no acute distress Performance status: 3-limited selfcare - EENT Eyes: PERRL, EOM intact ENT: hearing intact, clear oral mucosa Lymph node exam: negative cervical - Neck Neck: normal ROM - Respiratory Respiratory effort: Positive: normal Respiratory: bilateral: diminished - Cardiovascular Heart Sounds: Present: S1 & S2 Extremities: normal temperature Extremity abnormal: edema - Gastrointestinal General gastrointestinal: Present: soft, hepatomegaly Rectal Exam: deferred - Genitourinary Male genitourinary: Present: deferred - Integumentary Integumentary: warm - Musculoskeletal Musculoskeletal: strength equal bilaterally - Neurologic Neurologic: moves all extremities Medications & Allergies - Medications Allergies/Adverse Reactions: Allergies No Known Allergies Allergy (Unverified 04/07/19 23:31) Active Medications: Generic Name Dose Route Start Last Admin Trade Name Freq PRN Reason Stop Dose Admin Docusate Sodium 100 mg 04/08/19 10:00 04/14/19 22:18 Colace PO 100 mg BID LILLIAN Administration Enoxaparin Sodium 40 mg 04/08/19 10:00 04/14/19 10:54 Lovenox SUB-Q 40 mg QDAY LILLIAN Administration Furosemide 40 mg 04/08/19 06:00 04/15/19 05:40 Lasix IV 40 mg 0600,1800 LILLIAN Administration Cefepime HCl 2 gm in 100 mls @ 200 mls/hr 04/08/19 02:00 04/15/19 02:16 Maxipime/Ns 2 Gm/100 Ml IV 200 mls/hr Q8H LILLIAN Administration Protocol Morphine Sulfate 2 mg 04/08/19 06:53 04/14/19 10:35 Morphine IV 2 mg Q4H PRN Administration Pain, Moderate (4-6) Nicotine 14 mg 04/08/19 10:00 04/14/19 10:55 Habitrol TD Not Given QDAY [facility] Ondansetron HCl 4 mg 04/08/19 03:35 Zofran IV Q8H PRN Nausea And Vomiting Sodium Chloride 10 ml 04/08/19 10:00 04/14/19 22:19 Sodium Chloride Flush Syringe 10 Ml IV 10 ml BID LILLIAN Administration Sodium Chloride 10 ml 04/08/19 03:35 04/11/19 06:34 Sodium Chloride Flush Syringe 10 Ml IV 10 ml PRN PRN Administration LINE FLUSH
--- NOTE | 2019-04-15 08:35 | Event Note ---
Date: 04/15/19 Reviewed chart. If patient cannot have MRI of liver with and without contrast, then he should undergo a CT of the abdomen and pelvis with liver mass protocol. If distinctive features can be obtained, then this would be diagnostic for HCC. If not, then may need liver biopsy.
[2019-04-15] MEDS: COLACE PO SCH (09:34)
[2019-04-15] MEDS: SODIUM CHLORIDE FLUSH SYRINGE 10 ML IV SCH (09:35)
[2019-04-15] MEDS: HABITROL TD SCH (09:36)
[2019-04-15] MEDS: LOVENOX SUB-Q SCH (09:37)
--- NOTE | 2019-04-15 11:57 | Discharge Summary ---
Providers - Providers Date of Admission: 04/08/19 03:35 Attending physician: OMA SUTHERLAND MD 04/08/19 03:35 Consult to Physician [CONS] Routine Comment: Consulting Provider: BRIGID SHAW Physician Instructions: Reason For Exam: wbc 30+, recently diagnosed liver ca pt 04/08/19 08:02 Consult to Physician [CONS] Routine Comment: Consulting Provider: MAGGIE ROBERTS Physician Instructions: Reason For Exam: sob - chest mass - likely mets 04/12/19 08:31 Consult to Physician [CONS] Routine Comment: pl do liver bx Consulting Provider: LAISHA CAREY Physician Instructions: pt was seen in [facility] - notes ? svc syndrome - Reason For Exam: liver bx Primary care physician: JOSE GANN Hospitalization Reason for admission: liver mass Condition: Stable Hospital course: 48 patient male patient with newly diagnosed with pneumonia diagnosed hepatocellular carcinoma December 2018 in [place] With the retrosternal metastases, evaluation by oncology, radiation oncology, planning palliative radiation who presents to [facility] ED via EMS with c/o worsening dyspnea, bilateral lowr extremity and abdominal swelling for the past month. Pt relocated to [place] from [place], [place] approximately 3 months ago. Currently he is unemployed and is living with his mother. Pt does not have a PCP and has not received any treatment since paulina eigibson diagnosed with liver cancer at a facility in [place], [place] . During hosptial stay patients AFP was negative, IR was requested for liver biopsy. The patient has not recieved any therapy since the diagnosis was made. He was started on palliative radition therapy here and refused MRI due to chronic shortness of breath. His lowe ext edema was improved and CT Abdomen and pelvis was recommended with hepatic mass phase for further evaluation and follow with hematology/oncology and GI outptient and at that time determin if biopsy is still needed Lower extremity Doppler was negative for DVT CT abdomen and pelvis was consented for the liver mass and possible metastatic disease explained to the patient Patient will be discharged on Lasix fluid intake restrictions discussed in detail. He will continue with his outpatient radiation therapy Plan of care discussed adequately with the patient's. Acute respiratory failure secondary to volume overload Interstitial lung edema Hepatocellular carcinoma per history Retroperitoneal metastasis disease Reactive leukocytosis Transaminitis Generalized edema secondary to hepatic failure Severe protein calorie malnutrition Systemic inflammatory response syndrome without organ failure Lactic acidosis does not improve in - Disposition: DC-01 TO HOME OR SELFCARE Time spent for discharge: 35 mins Core Measure Documentation - Palliative Care Palliative Care/ Comfort Measures: Not Applicable - Core Measures Any of the following diagnoses?: none Exam - Physical Exam Narrative exam: VITAL SIGNS: Reviewed. GENERAL: The patient appeared well nourished and normally developed, Vital signs as documented. HEAD: No signs of head trauma. EYES: Pupils are equal. Extraocular motions intact. EARS: Hearing grossly intact. MOUTH: Oropharynx is normal. NECK: No adenopathy, no JVD. Mildly tender on the right side. CHEST: Chest with clear breath sounds bilaterally. No wheezes, rales, or rhonchi. CARDIAC: Regular rate and rhythm. S1 and S2, without murmurs, gallops, or rubs. VASCULAR: Trace bilateral Edema. Peripheral pulses normal and equal in all extremities. ABDOMEN: Trace skin edema Soft, non tender and non distended. No rebound or guarding, and no masses palpated. Bowel Sounds normal. MUSCULOSKELETAL: Good range of motion of all major joints. Extremities without clubbing, cyanosis . Trace bilateral edema. NEUROLOGIC EXAM: Alert and oriented x 3 No focal sensory or strength deficits. Speech normal. Follows commands. PSYCHIATRIC: Mood normal. SKIN: No rash or lesions. - Constitutional Vitals: Temp Pulse Resp BP Pulse Ox 99.1 F 119 H 20 144/93 96 04/15/19 05:16 04/15/19 05:16 04/15/19 05:16 04/15/19 05:16 04/15/19 05:16 Plan Activity: advance as tolerated, fall precautions Diet: regular Special Instructions: restrict fluid intake to (1200/day), record daily weights, record daily BP diary, smoking cessation Additional Instructions: CONTINUE OUTAPTIENT RADIATION THERAPY PER PLAN Follow up with: JOSE GANN MD [Primary Care Provider] - 7 Days BRIGID SHAW MD [Staff Physician] - 7 Days MAE HANKS MD [Staff Physician] - 7 Days Prescriptions: Nicotine [Habitrol] 14 mg TD QDAY #7 patch Furosemide [Lasix TAB] 40 mg PO QDAY #30 tablet
[2019-04-15 12:18] VITALS: BP 131/81
[2019-04-15 13:14] LABS: Hepatitis B Surface Antigen Non-Reactive (Negative); Hepatitis C Virus Antibody Non-Reactive (NonReactive)
--- NOTE | 2019-04-15 15:14 | Cat Scan Report ---
PROCEDURE: CT ABDOMEN PELVIS W CON TECHNIQUE: CT of the abdomen and pelvis was performed. 100 cc Omnipaque 350 IV was administered. Axia l images and coronal and sagittal reformatted images were obtained. HISTORY: liver mass COMPARISON: 04/08/2019 FINDINGS: There is trace right pleural fluid. There is a very large centrally necrotic mass in the right hepatic lobe measuring 20 cm diameter. The re are additional smaller masses. Findings are consistent with metastatic disease. There is a trace amount of ascites. The spleen, pancreas and kidneys demonstrate no significant abnormality. Left adrenal gland is unrema rkable. Right adrenal gland is poorly visualized, likely compressed by the enlarged liver. There is no abdominal aortic aneurysm. There is no evidence for intestinal obstruction. The appendix is normal. There is some small lymph nodes in the retroperitoneum, aortocaval, para-aortic regions and in left r enal hilum. There are also small lymph nodes along the iliac chains bilaterally. Largest paraaortic n ode measures about 1.8 cm. There is no free intraperitoneal air. Bladder is unremarkable. . IMPRESSION: Markedly enlarged liver with large liver masses, largest measuring 20 cm. Malignancy/metastatic disea se is suspected. There are small to borderline lymph nodes in the retroperitoneum including para-aortic, aortocaval, a nd left renal hilum. Trace ascites and trace right pleural fluid. This document is electronically signed by Kira Hernandez MD., Apr 15 2019 03:12:16 PM ET
== END 2019-04-15 16:00 | disposition home or self-care (01) | DRG 435 ==
LOC: ED 22:57 → 3A 04-08 03:35
PROVIDERS: ADMIT Internal Medicine; ATTEND Internal Medicine
DX: C22.8 Malignant neoplasm of liver, primary, unspecified as to type (principal); E43 Unspecified severe protein-calorie malnutrition; J18.9 Pneumonia, unspecified organism; J96.00 Acute respiratory failure, unspecified whether with hypoxia or hypercapnia; C79.51 Secondary malignant neoplasm of bone; E87.70 Fluid overload, unspecified; K72.90 Hepatic failure, unspecified without coma; R65.10 Systemic inflammatory response syndrome (SIRS) of non-infectious origin without acute organ dysfunction; D64.9 Anemia, unspecified; F17.210 Nicotine dependence, cigarettes, uncomplicated; E87.2 Acidosis; J81.1 Chronic pulmonary edema; Z68.24 Body mass index [BMI] 24.0-24.9, adult; Z56.0 Unemployment, unspecified
CPT/HCPCS: 36415; 71045; 71275; 74177; 80048; 80053; 80074; 80076; 82106; 82140; 82378; 83690; 83735; 83880; 84484; 85007; 85025; 85610; 86301; 87040; 87116; 90686; 93005; 93010; 93970; G0378; J0692; J1650; J1940; J2270; J3370; Q9967

== ENCOUNTER 2019-05-20 07:57 | Day surgery (SDC) | payer MEDICAID ==
[2019-05-20] MEDS ORDERED: VERSED IV ONE ×2 (08:33→10:46)
[2019-05-20] MEDS ORDERED: SUBLIMAZE IV ONE (08:33)
[2019-05-20 09:32] LABS: INR 0.97 (0.87-1.13)
[2019-05-20 09:33] LABS: Partial Thromboplastin Time 45.5 Sec. (24.2-36.6)
[2019-05-20] MEDS ORDERED: NACL 0.9% 500 ML 0 ML ONE (09:40)
[2019-05-20 09:53] LABS: Hemoglobin 9.8 gm/dl (11.8-15.2); Mean Corpuscular HGB Conc 34 % (32-34); Mean Corpuscular Volume 97 fl (84-94); Platelet Count 206 K/mm3 (140-440); Red Blood Count 2.98 M/mm3 (3.65-5.03); Red Cell Distribution Width 18.2 % (13.2-15.2)
[2019-05-20] MEDS ORDERED: SUBLIMAZE ONE (10:47)
--- NOTE | 2019-05-20 12:25 | Cat Scan Report ---
CT BIOPSY LIVER History: Disseminated malignant neoplasm, liver mass. Description of procedure: Informed consent was obtained. Sterile technique was utilized. 1% lidocaine for skin anesthesia. Anxiolysis was accomplished with Versed. The patient was sedated for 10 minutes. Independent cardiorespiratory monitoring by RN. Intraobserver time of [address] guidance, a 17-gauge introducer needle was advanced to the leading edge of a large infiltrating mass throughout the right hepatic lobe. Six 18-gauge core biopsies were obtained for pathologic analysis. The pathologist deemed the samples adequate. Followup scan demonstrated no evidence for hemorrhage. The patient tolerated the procedure without complication. Impression: Successful CT-guided biopsy of a large right hepatic lobe mass.
[2019-05-20 14:04] VITALS: BP 134/91
== END 2019-05-20 14:20 | disposition home or self-care (01) ==
LOC: CATHLABREC 07:57 → EDSTATUS 08:30 → CATHLABREC 14:20
PROVIDERS: ATTEND Internal Medicine Hematology & Oncology
DX: C22.8 Malignant neoplasm of liver, primary, unspecified as to type (principal); C80.1 Malignant (primary) neoplasm, unspecified; F17.210 Nicotine dependence, cigarettes, uncomplicated; Z79.899 Other long term (current) drug therapy
CPT/HCPCS: 36415; 47000; 77012; 82962; 85027; 85610; 85730; 88172; 88173; 88307; 88341; J2250; J3010; 88104; 88342; J7040

== ENCOUNTER 2019-06-22 11:43 | Emergency (ER) | payer MEDICAID ==
--- NOTE | 2019-06-22 11:57 | Event Note ---
ED Screening Note Date of service: 06/22/19 Time: 11:54 ED Screening Note: This is a 49 y.o. M. that presents with testicular enlargement and pain x 3 days. This initial assessment/diagnostic orders/clinical plan/treatment(s) is/are subject to change based on patients health status, clinical progression and re- assessment by fellow clinical providers in the ED. Further treatment and workup at subsequent clinical providers discretion. Patient/guardian urged not to elope from the ED as their condition may be serious if not clinically assessed and managed. Initial orders include: Testicular US and UA Main ED for further evaluation.
[2019-06-22 12:26] LABS: Bilirubin,Urine NEG (Negative); Blood,Urine NEG (Negative); Color,Urine Straw (Yellow); Mucus,Urine FEW /HPF; Protein,Urine <15 mg/dL mg/dL (Negative); RBC,Urine < 1.0 /HPF (0.0-6.0); Urobilinogen,Urine < 2.0 mg/dL (<2.0); WBC,Urine < 1.0 /HPF (0.0-6.0)
--- NOTE | 2019-06-22 13:17 | Emergency Department Report ---
ED Male HPI - General Chief complaint: Urogenital-Male Stated complaint: SWOLLEN TESTICLES Time Seen by Provider: 06/22/19 11:51 Source: patient Mode of arrival: Ambulatory Limitations: No Limitations - History of Present Illness Initial comments: 49-year-old male with history of liver cancer presents to ED with scrotal swelling 1 week. The patient reports chronic swelling to bilateral lower extremities. Currently taking Lasix 40 mg once a day. MD Complaint: testicle swelling -: week(s) (1) Location: penis, right testicle, left testicle Severity: severe Quality: aching Consistency: constant Improves with: none Worsens with: none swelling - Related Data Previous Rx's Medication Instructions Recorded Last Taken Type Furosemide [Lasix TAB] 40 mg PO QDAY #30 tablet 04/15/19 05/19/19 Rx 1 tab Allergies Allergy/AdvReac Type Severity Reaction Status Date / Time No Known Allergies Allergy Verified 06/22/19 11:45 ED Review of Systems ROS: Stated complaint: SWOLLEN TESTICLES Other details as noted in HPI Comment: All other systems reviewed and negative Constitutional: denies: chills, fever Genitourinary: other (reports penile and scrotal swelling) ED Past Medical Hx - Past Medical History Hx Asthma: No Hx HIV: No Additional medical history: Liver CA - Surgical History Past Surgical History?: No - Social History Smoking Status: Never Smoker Substance Use Type: None - Medications Home Medications: Home Medications Medication Instructions Recorded Confirmed Last Taken Type Furosemide [Lasix TAB] 40 mg PO QDAY #30 tablet 04/15/19 05/20/19 05/19/19 Rx 1 tab ED Physical Exam - General Limitations: No Limitations General appearance: alert, in no apparent distress - Head Head exam: Present: atraumatic, normocephalic - Eye Eye exam: Present: normal appearance - ENT ENT exam: Present: mucous membranes moist - Neck Neck exam: Present: normal inspection - Respiratory Respiratory exam: Present: normal lung sounds bilaterally. Absent: respiratory distress - Cardiovascular Cardiovascular Exam: Present: normal rhythm, tachycardia - GI/Abdominal GI/Abdominal exam: Present: organomegaly (hepatomegaly). Absent: tenderness - exam: Present: scrotal swelling (severe edema to scrotum and penis, mildly tender, no erythema) - Extremities Exam Extremities exam: Present: other (2+ edema BLE) - Neurological Exam Neurological exam: Present: alert, oriented X3 - Psychiatric Psychiatric exam: Present: normal affect, normal mood - Skin Skin exam: Present: warm, dry, intact ED Course Vital Signs 06/22/19 06/22/19 06/22/19 11:49 13:51 14:30 Temperature 97.7 F Pulse Rate 121 H 74 109 H Respiratory 18 18 18 Rate Blood Pressure 139/89 152/63 117/81 [Left] O2 Sat by Pulse 97 100 100 Oximetry 06/22/19 06/22/19 16:11 16:12 Temperature Pulse Rate 85 85 Respiratory 18 17 Rate Blood Pressure 110/65 129/60 [Left] O2 Sat by Pulse 100 100 Oximetry ED Medical Decision Making - Lab Data Result diagrams: 06/22/19 13:17 06/22/19 13:17 - Radiology Data Radiology results: report reviewed, image reviewed - Medical Decision Making 49-year-old male with liver cancer. Scrotal edema due to liver disease. Patient has existing chronic bilateral lower extremity edema for which she is currently taking Lasix. The patient denies any shortness of breath, O2 sats is normal. Patient is in no respiratory distress. Testicular ultrasound is negative for any acute findings. WBCs elevated into the 30s, which is stable compared to previous lab work. This is likely due to his cancer treatment. Extra dose of Lasix given here in ED. Advised to double his Lasix over the next 4 days. Patient advised to follow up with his oncologist as well. Return precautions given. - Differential Diagnosis hydrocele, anasarca, epidydimitis Critical care attestation.: If time is entered above; I have spent that time in minutes in the direct care of this critically ill patient, excluding procedure time. ED Disposition Clinical Impression: Scrotal edema Disposition: DC-01 TO HOME OR SELFCARE Is pt being admited?: No Condition: Stable Additional Instructions: Take your water pill, Furosemide, twice a day (every 12 hours) for the next 4 days. Follow up with your oncologist. Call your oncologist if swelling does not improve. Referrals: PRIMARY CARE, [Referring] - 3-5 Days
--- NOTE | 2019-06-22 13:43 | Ultrasound Report ---
Scrotal ultrasound INDICATION: Testicular enlargement and pain No testicular masses are seen. Both testicles show good internal blood flow. Minimal right and small left hydroceles are seen. Epididymal heads are within normal limits bilaterally. The tail of the left epididymis is rather prominent however. Scrotal wall in general is diffusely edematous. IMPRESSION: 1. Diffuse but nonspecific scrotal wall edema 2. No significant testicular abnormalities are seen 3. Though the epididymal heads appear within normal limits, the left epididymal tail is prominent. Po ssibly this could be involved with epididymitis. Signer Name: Maxwell Fitzgerald MD Signed: 06/22/2019 1:38 PM Workstation Name: [id number]
[2019-06-22] MEDS ORDERED: ULTRAM PO ONE (14:04)
[2019-06-22 14:06] LABS: Hematocrit 28.4 % (35.5-45.6); Hemoglobin 9.1 gm/dl (11.8-15.2); Mean Corpuscular HGB Conc 32 % (32-34); Mean Corpuscular Volume 99 fl (84-94); Platelet Count 378 K/mm3 (140-440); Red Blood Count 2.86 M/mm3 (3.65-5.03); Red Cell Distribution Width 17.1 % (13.2-15.2)
[2019-06-22 14:24] LABS: BUN/Creatinine Ratio 23; Blood Urea Nitrogen 16 mg/dL (9-20); Hemolysis Index 18
[2019-06-22] MEDS ORDERED: LASIX PO ONE (14:32)
[2019-06-22 16:12] VITALS: BP 129/60
[2019-06-22 18:03] LABS: Basophils % (Manual) 0 % (0.0-1.8); Eosinophils % (Manual) 0 % (0.0-4.3); Total Cells Counted 100
[2019-06-22 18:04] LABS: RBC Morphology Normal
== END 2019-06-22 16:12 | disposition home or self-care (01) ==
LOC: ED 11:43
DX: N50.89 Other specified disorders of the male genital organs (principal); Z85.05 Personal history of malignant neoplasm of liver; Z79.899 Other long term (current) drug therapy
CPT/HCPCS: 36415; 80048; 81001; 85007; 85025; 93975; 99284

== ENCOUNTER 2020-01-13 09:20 | Outpatient (CLI) | payer MEDICAID ==
[2020-01-13 10:18] LABS: Blood Urea Nitrogen 20 mg/dL (9-20)
--- NOTE | 2020-01-13 12:05 | Cat Scan Report ---
CT CHEST, ABDOMEN AND PELVIS WITH CONTRAST HISTORY: Hepatocellular carcinoma. COMPARISON: 04/15/2019 TECHNIQUE: CT images of the chest, abdomen and pelvis were obtained following administration of intra venous contrast. CONTRAST: 100 ml of Omnipaque 300. FINDINGS: CT CHEST: Heart and Pericardium: No significant abnormality. Vasculature: No significant abnormality. Lymphatics: An anterior mediastinal mass measures 3.6 x 2.1 cm. A left preaortic lymph node measures 1.8 to 1.1 cm and a right prevascular lymph node measures 1.2 x 0.9 cm. No other abnormal mediastinal or hilar lymph nodes. Lungs: No pulmonary nodule or mass. No pleural effusion. Trachea and Bronchi: No significant abnormality. Osseous Structures: Normal CT ABDOMEN: Liver: The liver is enlarged with the right lobe measuring 27 cm in length. Numerous right and left h epatic masses. The dominant mass in the right lobe measures 21.8 x 15.8 cm compared to 20.0 x 17.4 cm on the last exam. A second right hepatic mass measures 5.9 x 3.9 cm compared to 6.7 x 5.2 cm. A left lateral segment mass measures 7.2 x 5.1 cm compared to 6.7 x 4.8 cm. A second left lateral segment m ass measures 4.9 x 3.6 cm compared to 3.7 x 2.3 cm. Several additional smaller masses and at least a couple of new right hepatic masses. Biliary: No significant abnormality. Spleen: No significant abnormality. Unenlarged. Pancreas: No significant abnormality. Adrenals: No significant abnormality. Kidneys: No significant abnormality. Lymphatics: No lymphadenopathy. Vasculature: No significant abnormality. Bowel/Peritoneum: No significant abnormality. No free air. No free fluid. CT PELVIS: : No significant abnormality. Osseous Structures: Normal Additional Findings: None IMPRESSION: 1. Mediastinal robles metastases. 2. No evidence of pulmonary metastasis. 3. Increased hepatomegaly and increased size of most hepatic masses compared to the last exam. 4. At least 2 new right hepatic masses. 5. No abdominal robles metastasis and no ascites. Signer Name: Adrian Clay MD Signed: 01/13/2020 12:01 PM Workstation Name: [id number]
== END 2020-01-13 09:21 | disposition home or self-care (01) ==
LOC: CT 09:20
PROVIDERS: ATTEND Internal Medicine Hematology & Oncology
DX: C22.8 Malignant neoplasm of liver, primary, unspecified as to type (principal); R16.0 Hepatomegaly, not elsewhere classified
CPT/HCPCS: 36415; 71260; 74177; 82565; 84520; Q9967

== ENCOUNTER 2020-01-15 15:55 | Emergency (ER) | payer MEDICAID ==
[2020-01-15 16:00] VITALS: BP 116/80
--- NOTE | 2020-01-15 16:09 | Event Note ---
ED Screening Note ED Screening Note: Nosebleed for one hour. Has had runny nose for the past few days. This initial assessment/diagnostic orders/clinical plan/treatment(s) is/are subject to change based on patients health status, clinical progression and re- assessment by fellow clinical providers in the ED. Further treatment and workup at subsequent clinical providers discretion. Patient/guardian urged not to elope from the ED as their condition may be serious if not clinically assessed and managed. Initial orders include: needs room for treatment
== END 2020-01-15 18:44 | disposition left against medical advice (07) ==
LOC: ED 15:55
DX: R04.0 Epistaxis (principal); Z53.21 Procedure and treatment not carried out due to patient leaving prior to being seen by health care provider

== ENCOUNTER 2020-01-16 07:51 | Emergency (ER) | payer MEDICAID ==
[2020-01-16 07:58] VITALS: BP 125/82
--- NOTE | 2020-01-16 09:41 | Emergency Department Report ---
ED ENT HPI - General Chief complaint: Nosebleed Stated complaint: NOSE BLEED Time Seen by Provider: 01/16/20 09:36 Source: patient Mode of arrival: Ambulatory Limitations: No Limitations - History of Present Illness Initial comments: Mr. Garcia is a 49 yo male with hx of liver cancer on oral chemotherapeutic agent who presents with recurrent nosebleeds for one week. Has had nasal congestion. Bleeding comes from the left nostril. He denies weakness or lightheadedness. Not on antiplatement or anticoagulation. No current bleeding. MD complaint: epistaxis -: week(s) (1) Location: nose Severity: mild Consistency: now resolved Improves with: pressure Context-Epistaxis: history of similar Associated Symptoms: other (Nasal congestion) - Related Data Previous Rx's Medication Instructions Recorded Last Taken Type Furosemide [Lasix TAB] 40 mg PO QDAY #30 tablet 04/15/19 05/19/19 Rx 1 tab Allergies Allergy/AdvReac Type Severity Reaction Status Date / Time No Known Allergies Allergy Verified 06/22/19 11:45 ED Dental HPI - General Chief complaint: Nosebleed Stated complaint: NOSE BLEED Time Seen by Provider: 01/16/20 09:36 Source: patient Mode of arrival: Ambulatory Limitations: No Limitations - Related Data Previous Rx's Medication Instructions Recorded Last Taken Type Furosemide [Lasix TAB] 40 mg PO QDAY #30 tablet 04/15/19 05/19/19 Rx 1 tab Allergies Allergy/AdvReac Type Severity Reaction Status Date / Time No Known Allergies Allergy Verified 06/22/19 11:45 ED Review of Systems ROS: Stated complaint: NOSE BLEED Other details as noted in HPI Constitutional: denies: chills, fever, malaise ENT: congestion Respiratory: denies: shortness of breath Neurological: denies: headache ED Past Medical Hx - Past Medical History Previous Medical History?: Yes Hx of Cancer: Yes (liver) Hx Asthma: No Hx HIV: No Additional medical history: Liver CA - Surgical History Past Surgical History?: No - Social History Smoking Status: Current Every Day Smoker Substance Use Type: Prescribed - Medications Home Medications: Home Medications Medication Instructions Recorded Confirmed Last Taken Type Furosemide [Lasix TAB] 40 mg PO QDAY #30 tablet 04/15/19 05/20/19 05/19/19 Rx 1 tab ED Physical Exam - General Limitations: No Limitations General appearance: alert, in no apparent distress, other (Ambulatory without difficulty no acute distress) - Head Head exam: Present: atraumatic, normocephalic - Eye Eye exam: Present: normal appearance - ENT ENT exam: Present: mucous membranes moist, other (Tissue paper in left nostril without active bleeding) - Neck Neck exam: Present: normal inspection - Respiratory Respiratory exam: Absent: respiratory distress - GI/Abdominal GI/Abdominal exam: Present: soft, normal bowel sounds - Rectal Rectal exam: Present: deferred - Extremities Exam Extremities exam: Present: normal inspection - Neurological Exam Neurological exam: Present: alert, oriented X3 - Psychiatric Psychiatric exam: Present: normal affect, normal mood - Skin Skin exam: Present: warm, dry, intact, normal color. Absent: rash ED Course Vital Signs 01/16/20 07:54 Temperature 97.8 F Pulse Rate 124 H Respiratory 20 Rate Blood Pressure 125/82 O2 Sat by Pulse 96 Oximetry - Procedure Description Procedures done: Insertion of rhino rocket. Patient provided verbal informed consent for insertion of Rhino Rocket. I soaked the Rhino Rocket in normal saline. I inserted 5.5 cm Rhino Rocket into the left nostril. I inflated the balloon with air from syringe. ED Medical Decision Making - Medical Decision Making Left anterior epistaxis treated with Rhino Rocket nasal balloon. Instructed patient to return to emergency department in 3 days for removal. Also referred patient to ear nose and throat surgeon. Critical care attestation.: If time is entered above; I have spent that time in minutes in the direct care of this critically ill patient, excluding procedure time. ED Disposition Clinical Impression: Acute anterior epistaxis Disposition: DC-01 TO HOME OR SELFCARE Is pt being admited?: No Does the pt Need Aspirin: No Condition: Stable Additional Instructions: Please return to the ER in 3 days to have the packing removed. Otherwise you may also see the nose surgeon as discussed. Referrals: VINNIE MA MD [Staff Physician] - 2-3 Days
== END 2020-01-16 09:47 | disposition home or self-care (01) ==
LOC: ED 07:51
DX: R04.0 Epistaxis (principal); R09.81 Nasal congestion; R42 Dizziness and giddiness; F17.200 Nicotine dependence, unspecified, uncomplicated; Z79.899 Other long term (current) drug therapy; Z85.05 Personal history of malignant neoplasm of liver

== ENCOUNTER 2020-01-16 13:10 | Emergency (ER) | payer MEDICAID ==
--- NOTE | 2020-01-16 13:41 | Emergency Department Report ---
Chief Complaint: Nosebleed Stated Complaint: NOSE BLEED Time Seen by Provider: 01/16/20 13:38 - HPI History of Present Illness: 49 y/o returns to the ED for continued epistaxis. Pt was seen here 01/15 and earlier this morning for epistaxis. Pt had rhino rocket placed in left naris this am. Pt states when he went home he noiced bleeding from the right side. Pt tachycardic - Exam Vital Signs: Vital Signs 01/16/20 13:38 Temperature 98.0 F Pulse Rate 120 H Respiratory 20 Rate Blood Pressure 125/83 [Left] O2 Sat by Pulse 97 Oximetry MSE screening note: Focused history and physical exam performed. Due to findings the following was ordered: cbc, bmp, pt/ptt/inr, t&s ED Disposition for MSE Condition: Stable
[2020-01-16 14:15] LABS: Hematocrit 36.4 % (35.5-45.6); Hemoglobin 11.8 gm/dl (11.8-15.2); Mean Corpuscular HGB Conc 32 % (32-34); Mean Corpuscular Volume 100 fl (84-94); Platelet Count 269 K/mm3 (140-440); Red Blood Count 3.66 M/mm3 (3.65-5.03); Red Cell Distribution Width 15.2 % (13.2-15.2)
[2020-01-16 14:18] LABS: Lymphocytes % (Auto) 5.5 % (13.4-35.0)
[2020-01-16 14:19] LABS: Basophils # (Auto) 0.3 K/mm3 (0.0-0.1); Basophils % (Auto) 0.9 % (0.0-1.8); Eosinophils # (Auto) 0.1 K/mm3 (0.0-0.4); Eosinophils % (Auto) 0.3 % (0.0-4.3); Lymphocytes # (Auto) 1.9 K/mm3 (1.2-5.4); Monocytes # (Auto) 1.7 K/mm3 (0.0-0.8); Monocytes % (Auto) 4.9 % (0.0-7.3)
[2020-01-16 14:27] LABS: INR 0.94 (0.87-1.13)
[2020-01-16 14:34] LABS: BUN/Creatinine Ratio 30; Blood Urea Nitrogen 21 mg/dL (9-20); Calcium 9.4 mg/dL (8.4-10.2); Hemolysis Index 10
[2020-01-16] MEDS ORDERED: LIDOCAINE 2%/EPINEPHRINE 1:200,000 VIAL (20 ML) INFILTRATI ONE (14:46)
[2020-01-16] MEDS ORDERED: ALPRAZolam 0.25 MG TAB PO ONE (14:46)
[2020-01-16] MEDS ORDERED: OXYMETAZOLINE 0.05% NASAL SPRAY NS ONE (14:46)
--- NOTE | 2020-01-16 15:20 | Emergency Department Report ---
ED General Adult HPI - General Chief complaint: Nosebleed Stated complaint: NOSE BLEED Time Seen by Provider: 01/16/20 13:38 Source: patient, RN notes reviewed, old records reviewed Mode of arrival: Ambulatory Limitations: No Limitations - History of Present Illness Initial comments: This is a 49-year-old gentleman. He has a history of recurrent nosebleed, hepatocellular carcinoma, metastatic disease, chronic leukocytosis, chronic generalized edema of He presents to the ER today with recurrent complaints of nasal bleeding. He was seen earlier on today by 1 of my colleagues, and received left-sided nasal packing for nosebleeding. He was discharged, and then presents with resolved right-sided nasal bleeding. He is somewhat anxious, but denies other acute complaints. He makes no complaint of hematemesis or bright red blood per rectum. In the emergency room, minimal oozing was noted initially in the right nostril, which stopped with application of direct pressure, and 2 x 2 sponge soaked with oxymetazoline, and lidocaine with 2% epinephrine. -: Gradual Location: face Consistency: intermittent Improves with: medication, other - Related Data Previous Rx's Medication Instructions Recorded Last Taken Type Furosemide [Lasix TAB] 40 mg PO QDAY #30 tablet 04/15/19 05/19/19 Rx 1 tab cephALEXin [Keflex] 500 mg PO Q12HR #10 cap 01/16/20 Unknown Rx Allergies Allergy/AdvReac Type Severity Reaction Status Date / Time No Known Allergies Allergy Verified 06/22/19 11:45 ED Review of Systems ROS: Stated complaint: NOSE BLEED Other details as noted in HPI Constitutional: denies: fever ENT: epistaxis Respiratory: denies: shortness of breath Cardiovascular: denies: chest pain Gastrointestinal: denies: abdominal pain, hematemesis, melena Psychiatric: anxiety ED Past Medical Hx - Past Medical History Previous Medical History?: Yes Hx Asthma: No Hx HIV: No Additional medical history: Liver CA, Nosebleeds - Surgical History Past Surgical History?: No - Social History Smoking Status: Current Every Day Smoker Substance Use Type: Prescribed - Medications Home Medications: Home Medications Medication Instructions Recorded Confirmed Last Taken Type Furosemide [Lasix TAB] 40 mg PO QDAY #30 tablet 04/15/19 05/20/19 05/19/19 Rx 1 tab cephALEXin [Keflex] 500 mg PO Q12HR #10 cap 01/16/20 Unknown Rx ED Physical Exam - General Limitations: No Limitations General appearance: alert, anxious, in distress - Head Head exam: Present: atraumatic, normocephalic - Eye Eye exam: Present: normal appearance, EOMI. Absent: nystagmus - ENT ENT exam: Present: normal orophraynx, mucous membranes moist, normal external ear exam, other (The patient is speaking in full sentences. There is no stridor or dysphonia. The tongue is midline. Left-sided nostril has packing in it. Minimal oozing noted in right nostril, which is now resolved) - Neck Neck exam: Present: normal inspection, full ROM. Absent: tenderness, meningismus - Respiratory Respiratory exam: Present: normal lung sounds bilaterally. Absent: respiratory distress, wheezes, rales, rhonchi, stridor - Cardiovascular Cardiovascular Exam: Present: normal rhythm, tachycardia, normal heart sounds. Absent: systolic murmur, diastolic murmur, rubs, gallop - GI/Abdominal GI/Abdominal exam: Present: soft. Absent: distended, tenderness, guarding, rebound, rigid, pulsatile mass - Rectal Rectal exam: Present: deferred - Extremities Exam Extremities exam: Present: normal inspection, full ROM, pedal edema, other (2+ pulses noted in the bilateral upper and lower extremities. There is no palpable cord. negative Homans sign. Muscular compartments are soft. The pelvis is stable.). Absent: calf tenderness - Back Exam Back exam: Present: normal inspection. Absent: tenderness, CVA tenderness (R), CVA tenderness (L), paraspinal tenderness, vertebral tenderness - Neurological Exam Neurological exam: Present: alert, normal gait, other (There is no facial droop. The tongue is midline. The extraocular movements are intact bilaterally. 5 out of 5 strength in 4 extremities.) - Psychiatric Psychiatric exam: Present: anxious - Skin Skin exam: Present: warm, dry, intact, normal color. Absent: rash ED Course Vital Signs 01/16/20 01/16/20 13:38 15:33 Temperature 98.0 F Pulse Rate 120 H 112 H Respiratory 20 20 Rate Blood Pressure 125/83 119/83 [Left] O2 Sat by Pulse 97 97 Oximetry - Reevaluation(s) Reevaluation #1: 01/16/20 15:28 Differential diagnosis, including not limited to: Nasal bleeding, coagulopathy, anxiety, chronic leukocytosis Assessment and plan: 49-year-old gentleman presenting with resolved right-sided nasal bleeding. He is afebrile with reassuring vital signs with the exception of tachycardia which appears to be chronic upon review of old medical records. Heart rate now 110 bpm, which appears to be within the range patient's prior vital signs. A tongue depressor pressure device was constructed, and the patient was instructed on how to use it. In addition, 2 x 2 sponge was soaked with oxymetazoline, and 2% lidocaine with epinephrine, and this was gently inserted into the right nostril, and he remained for 15 minutes. The patient indicates his symptoms are improved. He is counseled that nasal bleeding will likely recur. Laboratory studies are reviewed and appreciated. Please note that they were ordered prior to my personal evaluation. Coagulation parameters are reviewed and appreciated, do not indicate significant coagulopathy at this time. Reevaluation #2: 01/16/20 15:39 Reassessed. No active bleeding. 2 x 2 sponges removed. Heart rate 110 to 112 bpm. Patient endorses subjective improvement. He endorses readiness for discharge. Extensive discussion had with patient regarding self-care instructions if and when bleeding reoccurs. ED Medical Decision Making - Lab Data Result diagrams: 01/16/20 13:50 01/16/20 13:50 Vital Signs 01/16/20 13:38 Temperature 98.0 F Pulse Rate 120 H Respiratory 20 Rate Blood Pressure 125/83 [Left] O2 Sat by Pulse 97 Oximetry Lab Results 01/16/20 01/16/20 01/16/20 Range/Units 13:50 13:50 13:50 WBC 34.0 H (4.5-11.0) K/mm3 RBC 3.66 (3.65-5.03) M/mm3 Hgb 11.8 (11.8-15.2) gm/dl Hct 36.4 (35.5-45.6) % MCV 100 H (84-94) fl MCH 32 (28-32) pg MCHC 32 (32-34) % RDW 15.2 (13.2-15.2) % Plt Count 269 (140-440) K/mm3 Lymph % (Auto) 5.5 L (13.4-35.0) % Barrow % (Auto) 4.9 (0.0-7.3) % Eos % (Auto) 0.3 (0.0-4.3) % Baso % (Auto) 0.9 (0.0-1.8) % Lymph # 1.9 (1.2-5.4) K/mm3 Barrow # 1.7 H (0.0-0.8) K/mm3 Eos # 0.1 (0.0-0.4) K/mm3 Baso # 0.3 H (0.0-0.1) K/mm3 Seg Neutrophils % 88.4 H (40.0-70.0) % Seg Neutrophils # 30.1 H (1.8-7.7) K/mm3 PT 12.7 (12.2-14.9) Sec. INR 0.94 (0.87-1.13) APTT 40.0 H (24.2-36.6) Sec. Sodium 136 L (137-145) mmol/L Potassium 4.8 (3.6-5.0) mmol/L Chloride 100.5 (98-107) mmol/L Carbon Dioxide 19 L (22-30) mmol/L Anion Gap 21 mmol/L BUN 21 H (9-20) mg/dL Creatinine 0.7 L (0.8-1.5) mg/dL Estimated GFR > 60 ml/min BUN/Creatinine Ratio 30 % Glucose 90 (75-100) mg/dL Calcium 9.4 (8.4-10.2) mg/dL Blood Type Antibody Screen 01/16/20 Range/Units 13:50 WBC (4.5-11.0) K/mm3 RBC (3.65-5.03) M/mm3 Hgb (11.8-15.2) gm/dl Hct (35.5-45.6) % MCV (84-94) fl MCH (28-32) pg MCHC (32-34) % RDW (13.2-15.2) % Plt Count (140-440) K/mm3 Lymph % (Auto) (13.4-35.0) % Barrow % (Auto) (0.0-7.3) % Eos % (Auto) (0.0-4.3) % Baso % (Auto) (0.0-1.8) % Lymph # (1.2-5.4) K/mm3 Barrow # (0.0-0.8) K/mm3 Eos # (0.0-0.4) K/mm3 Baso # (0.0-0.1) K/mm3 Seg Neutrophils % (40.0-70.0) % Seg Neutrophils # (1.8-7.7) K/mm3 PT (12.2-14.9) Sec. INR (0.87-1.13) APTT (24.2-36.6) Sec. Sodium (137-145) mmol/L Potassium (3.6-5.0) mmol/L Chloride (98-107) mmol/L Carbon Dioxide (22-30) mmol/L Anion Gap mmol/L BUN (9-20) mg/dL Creatinine (0.8-1.5) mg/dL Estimated GFR ml/min BUN/Creatinine Ratio % Glucose (75-100) mg/dL Calcium (8.4-10.2) mg/dL Blood Type O POSITIVE Antibody Screen Negative Leukocytosis is reviewed and appreciated, this is a chronic finding. Appreciate that patient meets systemic inflammatory response syndrome criteria, however, based off of the history and physical, we do not suspect invasive bacterial illness at this time. Critical care attestation.: If time is entered above; I have spent that time in minutes in the direct care of this critically ill patient, excluding procedure time. ED Disposition Clinical Impression: History of epistaxis Disposition: - TO HOME OR SELFCARE Is pt being admited?: No Does the pt Need Aspirin: No Condition: Stable Additional Instructions: Avoid consumption of Motrin, ibuprofen, Naprosyn, Aleve, alcohol. Patient may use Afrin spray if bleeding recurs, 1 to 2 sprays per nostril, every 12 hours, for no longer than 3 days consecutively. Take the antibiotics as directed, follow-up with an director of market research within the next 3 to 5 days. Return to the emergency room right away with new, worsened or different symptoms, or symptoms not present on the initial emergency room evaluation. Prescriptions: cephALEXin [Keflex] 500 mg PO Q12HR #10 cap Referrals: VINNIE MA MD [Staff Physician] - 3-5 Days ANAND MARK MD [Staff Physician] - 3-5 Days
[2020-01-16 15:34] VITALS: BP 119/83
== END 2020-01-16 15:54 | disposition home or self-care (01) ==
LOC: ED 13:10
DX: R04.0 Epistaxis (principal); R60.1 Generalized edema; F17.200 Nicotine dependence, unspecified, uncomplicated; Z79.899 Other long term (current) drug therapy; Z85.05 Personal history of malignant neoplasm of liver
CPT/HCPCS: 36415; 80048; 85025; 85610; 85730; 86850; 86900; 86901